=== PATIENT | female | born 1955 | race Caucasian/White ===

== ENCOUNTER → 2017-03-09 | Outpatient (CLI) | payer OTHER ==
[~2017-03-09] MED LIST: ESCI10TA17 PO; LISI-729 PO; SINGULAIR; SYMIN/8045 INH
[2017-03-09 09:42] LABS: BASO % 0.6 %; BASO ABS # 0.03 K/uL (0-0.2); COMPLETE YES; EOS % 1.5 %; HEMATOCRIT 42.3 % (37-47); IG% 0.4 %; LYMPH % 18.5 %; LYMPH ABS # 0.87 K/uL (1.2-3.4); MEAN CELL VOLUME 90.4 fL (80-100); MEAN CORPUSCULAR HEMOGLOBIN 30.6 pg (25-34); MEAN CORPUSCULAR HGB CONC 33.8 g/dl (32-36); MEAN PLATELET VOLUME 9.4 fL (7.4-10.4); MONO % 10.4 %; NEUT % 68.6 %; PLATELET COUNT 305 K/uL (130-400); RED BLOOD COUNT 4.68 M/uL (4.2-5.4); WHITE BLOOD COUNT 4.71 K/uL (4.8-10.8)
[2017-03-09 10:08] LABS: ALT/SGPT 28 U/L (12-78); BLOOD UREA NITROGEN 17 mg/dl (7-18); CALCIUM 9.3 mg/dl (8.5-10.1); CARBON DIOXIDE 27 mmol/L (21-32); CHLORIDE 102 mmol/L (98-107); CHOLESTEROL 276 mg/dl (0-200); CREATININE 0.89 mg/dl (0.60-1.20); GLUCOSE 88 mg/dl (70-99); POTASSIUM 4.4 mmol/L (3.5-5.1); SODIUM 136 mmol/L (136-145)
[2017-03-09 10:09] LABS: ESTIMATED AVERAGE GLUCOSE 114 mg/dl; HA1C FLAG Normal (Normal)
[2017-03-09 10:22] LABS: ALB/GLOB RATIO 1.2 (0.9-2); ALKALINE PHOSPHATASE 69 U/L (45-117); AST/SGOT 20 U/L (15-37); CHOLESTEROL/HDL RATIO 2.5; HDL CHOLESTEROL 109 mg/dl; LDL CHOLESTEROL CALCULATED 153 mg/dl; TRIGLYCERIDES 69 mg/dl (0-150); VERY LOW DENSITY LIPOPROT CALC 14 mg/dl
[2017-03-09 12:51] LABS: LYME DISEASE AB IGG NEG (NEG)
[2017-03-09 12:52] LABS: LYME DISEASE AB IGM NEG (NEG)
== END | disposition home or self-care (01) ==
LOC: C.LAB1850 08:21
PROVIDERS: ATTEND Nurse Practitioner Adult Health
DX: I10 Essential (primary) hypertension (principal); E78.5 Hyperlipidemia, unspecified; E55.9 Vitamin D deficiency, unspecified; M25.50 Pain in unspecified joint

== ENCOUNTER → 2017-06-28 | Outpatient (CLI) | payer OTHER ==
--- NOTE | 2017-06-29 07:53 | MAMMOGRAPHY REPORT ---
BILATERAL DIGITAL SCREENING MAMMOGRAM TOMOSYNTHESIS WITH CAD: 06/28/2017 CLINICAL HISTORY: Routine screening. Patient has no complaints. TECHNIQUE: Breast tomosynthesis in addition to standard 2D mammography was performed. Current study was also evaluated with a Computer Aided Detection (CAD) system. COMPARISON: Comparison is made to exams dated: 04/12/2016 mammogram, 04/08/2015 mammogram, 04/04/2014 m ammogram, 03/29/2013 mammogram, 03/28/2012 mammogram, and 11/22/2010 mammogram - [facility] er. BREAST COMPOSITION: The tissue of both breasts is almost entirely fatty. FINDINGS: There is evidence of bilateral reduction mammoplasty. A few benign rim calcifications. No suspicious mass, architectural distortion or cluster of suspicious microcalcifications is seen. IMPRESSION: ACR BI-RADS CATEGORY 1: NEGATIVE There is no mammographic evidence of malignancy. A 1 year screening mammogram is recommended. The pa tient will receive written notification of the results. Approximately 10% of breast cancers are not detected with mammography. A negative mammographic report should not delay biopsy if a clinically suggestive mass is present. Kandi Morris M.D. ay/:06/28/2017 16:18:52 Vascular Specialists: Eulalia MANCUSO(Leyla)(Brian), [facility] letter sent: Normal 1/2 BI-RADS Code: ACR BI-RADS Category 1: Negative
== END | disposition home or self-care (01) ==
LOC: C.MAMM 11:39
PROVIDERS: ATTEND Internal Medicine
DX: Z12.31 Encounter for screening mammogram for malignant neoplasm of breast (principal)

== ENCOUNTER → 2017-07-25 | Outpatient (CLI) | payer OTHER ==
--- NOTE | 2017-07-25 13:29 | DIAGNOSTIC IMAGING REPORT ---
CHEST 2 VIEWS ROUTINE CLINICAL HISTORY: 62 years-old Female presenting with COUGH. TECHNIQUE: PA and lateral views of the chest were obtained. COMPARISON: None. FINDINGS: Atherosclerosis of the aortic arch. Cardiac silhouette normal in size. Lungs and pleural spaces clear. Osseous structures normal. Upper abdomen normal. IMPRESSION: 1. No acute cardiopulmonary disease. Electronically signed by: Campbell Alfaro M.D. 07/25/2017 1:28 PM Dictated Date/Time: 07/25/2017 1:26 PM
== END | disposition home or self-care (01) ==
LOC: C.RADBC 12:36
PROVIDERS: ATTEND Nurse Practitioner Adult Health
DX: R05 Cough (principal)

== ENCOUNTER → 2017-10-07 | Outpatient (CLI) | payer OTHER ==
[2017-10-07 08:01] LABS: BASO % 1.1 %; BASO ABS # 0.05 K/uL (0-0.2); EOS % 2.6 %; EOS ABS # 0.12 K/uL (0-0.5); HEMATOCRIT 41.6 % (37-47); HEMOGLOBIN 14.3 g/dL (12.0-16.0); LYMPH % 23.2 %; LYMPH ABS # 1.09 K/uL (1.2-3.4); MEAN CELL VOLUME 87.8 fL (80-100); MEAN CORPUSCULAR HEMOGLOBIN 30.2 pg (25-34); MEAN CORPUSCULAR HGB CONC 34.4 g/dl (32-36); MEAN PLATELET VOLUME 9.3 fL (7.4-10.4); MONO % 10.4 %; MONO ABS # 0.49 K/uL (0.11-0.59); NEUT % 62.7 %; NEUT ABS # 2.95 K/uL (1.4-6.5); PLATELET COUNT 279 K/uL (130-400); RED CELL DISTRIBUTION WIDTH CV 12.9 % (11.5-14.5)
[2017-10-07 08:21] LABS: BLOOD UREA NITROGEN 13 mg/dl (7-18); CALCIUM 8.9 mg/dl (8.5-10.1); CARBON DIOXIDE 27 mmol/L (21-32); CHOLESTEROL 245 mg/dl (0-200); CREATININE 0.81 mg/dl (0.60-1.20); GLUCOSE 93 mg/dl (70-99); POTASSIUM 4.2 mmol/L (3.5-5.1); SODIUM 137 mmol/L (136-145)
[2017-10-07 08:25] LABS: LDL CHOLESTEROL CALCULATED 149 mg/dl
== END | disposition home or self-care (01) ==
LOC: C.LAB 07:14
PROVIDERS: ATTEND Family Medicine
DX: E78.5 Hyperlipidemia, unspecified (principal); I10 Essential (primary) hypertension

== ENCOUNTER → 2018-02-12 | Outpatient (CLI) | payer OTHER ==
[2018-02-12 17:28] LABS: ALBUMIN 3.6 gm/dl (3.4-5.0); ALKALINE PHOSPHATASE 101 U/L (45-117); ALT/SGPT 40 U/L (12-78); AST/SGOT 17 U/L (15-37); BLOOD UREA NITROGEN 13 mg/dl (7-18); CALCIUM 8.5 mg/dl (8.5-10.1); CARBON DIOXIDE 29 mmol/L (21-32); CREATININE 0.71 mg/dl (0.60-1.20); GLUCOSE 94 mg/dl (70-99); POTASSIUM 4.2 mmol/L (3.5-5.1); SODIUM 141 mmol/L (136-145); TOTAL PROTEIN 7.2 gm/dl (6.4-8.2)
== END | disposition home or self-care (01) ==
LOC: C.LAB1850 15:44
PROVIDERS: ATTEND Family Medicine
DX: D32.9 Benign neoplasm of meninges, unspecified (principal)

== ENCOUNTER → 2018-03-06 | Outpatient (CLI) | payer OTHER ==
[~2018-03-06] MED LIST changes: +GADAVIST IV PRN
--- NOTE | 2018-03-06 08:43 | DIAGNOSTIC IMAGING REPORT ---
MRI OF THE BRAIN COMBO CLINICAL HISTORY: Migraine headache. COMPARISON STUDY: MRI of the brain dated 06/04/2015 and 01/22/2008. TECHNIQUE: MRI of the brain was performed utilizing various T1 and T2-weighted sequences in the axial, sagittal, and coronal planes. Contrast-enhanced sequences were acquired following the administration of 7.5 cc of Gadavist. FINDINGS: Brain parenchyma: There is minimal patchy subcortical and periventricular microangiopathic disease. There is no hemorrhage or mass effect. There is no restricted diffusion to suggest acute ischemia. There is a 10 mm homogeneously enhancing extra-axial nodule along the right frontal convexity. This is unchanged in previous and is typical in appearance for a small meningioma. There is no associated mass effect. No additional enhancing mass lesion is identified on the postcontrast images. Varner-white matter differentiation is preserved. No extra-axial fluid collection is seen. The cerebellar tonsils are normal in configuration. Ventricles, sulci, and cisterns: Normal in configuration. Pituitary and sella: Unremarkable. Intracranial vasculature: Normal flow voids are maintained at the skull base. Orbits: The bony orbits are grossly intact. Orbital contents are normal in appearance. Sinuses and mastoids: Trace mucosal thickening is seen within the left maxillary antrum, the left frontal sinus, the ethmoid sinuses. The remaining paranasal sinuses are clear. The mastoid air cells are well pneumatized. Calvarium: Unremarkable. Cervical cord: Partially visualized cervical spinal cord is normal in morphology and signal intensity. IMPRESSION: 1. No acute intracranial abnormality. 2. A 10 mm extra-axial nodule along the right frontal convexity is unchanged dating back to 2007 and typical in appearance for a small meningioma. There is no associated mass effect. Electronically signed by: Danny Hawk M.D. 03/06/2018 8:42 AM Dictated Date/Time: 03/06/2018 8:37 AM
== END | disposition home or self-care (01) ==
LOC: C.MRIBC 07:47
PROVIDERS: ATTEND Family Medicine
DX: D32.9 Benign neoplasm of meninges, unspecified (principal)

== ENCOUNTER 2020-02-26 19:30 | Observation (INO) ==
--- NOTE | 2020-02-26 19:42 | Emergency Department Note ---
Impression & Plan Sacroiliitis, Back pain ED Provider Note NAME: NARDA CLARK AGE: 64 SEX: F : 1955 ARRIVES VIA: Walk-In INFORMANT: Patient, ED PROVIDER(S): Dean Light MD Chief Complaint: Back pain HPI: Patient is progressively worsening back pain with several days. The patient reportedly had a likely torn meniscus recently. The patient did have an injection to the knee. The patient denies any recent heavy lifting twisting or turning. Patient denies any trauma to the back. Patient describes the pain is constant and unrelenting. The patient's pain was initially an 11 out of 10 but currently about a 6 or 7 out of 10. The patient describes it as achy and sharp with radiation from the right lower back and buttock to the thigh. The patient does complain of some decrease sensation over the right lateral thigh. The patient denies any bowel or bladder incontinence, fevers, chills, chest pains, shortness of breath. The patient denies any dysuria hematuria or bowel issues. Patient denies any saddle anesthesia. Patient denies any prior history of cancer or unexplained weight loss. Patient does not use drugs. Patient does not use tobacco. Patient states that she recently was tested for Lyme's. The patient had been seen by sports medicine where the patient did start taking tramadol and methylprednisolone Dosepak. Patient states that this along with hydrocodone and NSAIDs has not improved her pain. ROS: See HPI for pertinent positives and negatives. A total of 10 systems were reviewed and otherwise negative. Past medical history: See below Surgical history: See below Social history: See below Physical Exam: GENERAL: Mildly uncomfortable in appearance, wearing glasses and a mask. NAD, non-toxic. EYE EXAM: Normal conjunctiva. PERRL, no anisocoria and EOM's grossly intact w/o pain. NECK: Supple, no nuchal rigidity, no adenopathy, non-tender. No signs of meningismus. LUNGS: Clear to auscultation. Normal chest wall mechanics. HEART: NSR, no MRG. ABDOMEN: Abdomen soft, non-tender, normo-active bowel sounds, no masses, no rebound or guarding. BACK: No CVA TTP. Mild pain to the right paraspinal and midline lumbar area. SKIN: No rashes and no bruising. UPPER EXTREMITIES: Upper extremities are grossly normal. LOWER EXTREMITIES: Grossly normal, no edema. Negative straight leg raise bilaterally. Positive Gabrielle test. NEURO EXAM: A&O x3, cranial nerves II-XII grossly intact, normal speech, moves all 4 extremities on command w/o issue. Slight decrease sensation over the r ight lateral thigh, no saddle anesthesia present. Differential diagnoses: Musculoskeletal, disc herniation, fracture, metastatic disease, cord compression, discitis, sciatica, cauda equina, infection, aortic disease, renal colic, gastrointestinal, as well as other pathologies. Course: Patient was seen and evaluated the bedside. Full history physical exam was performed. EKG: None Imaging Studies: Lumbar series Possible spondylolisthesis but no obvious fracture or dislocation. 1 view pelvis No obvious fractures or dislocation Cardiac monitoring: An order was placed for continuous cardiac monitoring. The monitor shows a rate of 85 with sinus rhythm. MDM: Patient was seen due to concern for back pain.Patient has a normal white count H&H and platelet count. The patient's kidney function shows a mild prerenal azotemia. X-ray does not show any obvious fracture but may have some sp ondylolisthesis seen on her x-ray. I did speak the on-call hospitalist Dr. Jackson as the patient could not tolerate ambulating secondary to pain. Patient was admitted to the medicine service. Past Med/Surg History Medical History Asthma Benign meningioma of brain Controlled substance agreement signed (Inactive) History of SCC (squamous cell carcinoma) of skin (Inactive) Hypertension Migraine Obesity Osteoarthritis Sleep apnea CPAP Stress incontinence Vitamin D deficiency (Inactive) Surgical History H/O bilateral breast reduction surgery History of arthroscopy RT KNEE History of bilateral tubal ligation History of breast biopsy History of colonoscopy History of hysterectomy History of tonsillectomy History of tooth extraction S/P blepharoplasty (04/2018) Social History Smoking Status: Never smoker Second Hand Exposure: No; Hx Alcohol Use: Yes Alcohol type: beer, wine and hard liquor Hx Substance Use: No Preferred Language: Georgian Communication Ability: Effective Visual Impairment: No Limitations Broach Operator Required: No Beliefs That Will Affect Care: None Current Living Situation: Spouse Feels Safe at Home: Yes Allergies Allergies Allergy/AdvReac Type Severity Reaction Status Date / Time oxycodone [From Percocet] Allergy Mild itchiness Verified 05/28/19 08:10 Home Meds Home Medications Medication Instructions Recorded Confirmed budesonide-formoterol [Symbicort] 2 puffs INH DAILY 02/26/20 02/26/20 [id number] See Rx Instructions PO Q6H PRN MDD 02/26/20 02/26/20 [Fiorinal] 6 Capsules/24 hours escitalopram oxalate 20 mg PO HS 02/26/20 02/26/20 lisinopril 20 mg PO QAM 02/26/20 02/26/20 methylprednisolone See Rx Instructions .ROUTE .COMPLEX 02/26/20 02/26/20 montelukast [Singulair] 10 mg PO HS 02/26/20 02/26/20 tramadol 50 mg PO Q6H PRN 02/26/20 02/26/20 Previous Rx's Medication Instructions Recorded solifenacin 10 mg tablet 10 mg PO QAM #90 tab 04/29/19 albuterol sulfate 90 mcg/actuation 2 puff INHALATION QID PRN #18 gm 05/21/19 aerosol inhaler Results & Data (ED) Vital Signs Vital Signs - 24 hr 02/26/20 19:36 02/26/20 20:18 02/26/20 20:30 Temperature 37.0 C Temperature Source Oral Pulse Rate 85 Pulse Rate [Finger] 70 74 Pulse Rhythm [Finger] Regular Regular Pulse Strength [Finger] Normal Normal Respiratory Rate 16 18 18 Respiratory Effort / Characteristics Non-Labored Spontaneous Non-Labored Spontaneous Non-Labored Spontaneous Respiratory Depth Normal Normal Normal Respiratory Pattern Regular Regular Regular Blood Pressure 90/65 L Blood Pressure [Right Arm] 171/102 H 149/102 H Blood Pressure Mean 73 Blood Pressure Mean [Right Arm] 125 117 Blood Pressure Position Sitting Blood Pressure Position [Right Arm] Lying Lying Pulse Oximetry 97 98 93 Oxygen Delivery Method Room Air Room Air Room Air Sepsis Recent Fever Within 48 Hours No Sepsis New/Unexplained Change in Mental Status No Sepsis Action Taken by Nursing No Action Required 02/26/20 22:00 02/26/20 23:00 Temperature Temperature Source Pulse Rate Pulse Rate [Finger] 75 67 Pulse Rhythm [Finger] Regular Regular Pulse Strength [Finger] Normal Normal Respiratory Rate 18 18 Respiratory Effort / Characteristics Non-Labored Spontaneous Non-Labored Spontaneous Respiratory Depth Normal Normal Respiratory Pattern Regular Regular Blood Pressure Blood Pressure [Right Arm] 142/90 H 140/88 Blood Pressure Mean Blood Pressure Mean [Right Arm] 107 105 Blood Pressure Position Blood Pressure Position [Right Arm] Lying Lying Pulse Oximetry 94 94 Oxygen Delivery Method Room Air Room Air Sepsis Recent Fever Within 48 Hours Sepsis New/Unexplained Change in Mental Status Sepsis Action Taken by Residential Medications Current Medication List: was personally reviewed by me Laboratory Data Attestation: I reviewed the patient's lab results. Result diagrams: 02/26/20 21:13 02/26/20 21:13 Lab Results 02/26/20 02/26/20 Range/Units 21:13 21:13 WBC 10.64 (4.8-10.8) K/uL RBC 4.36 (4.2-5.4) M/uL Hgb 13.2 (12.0-16.0) g/dL Hct 39.4 (37-47) % MCV 90.4 (80-100) fL MCH 30.3 (25-34) pg MCHC 33.5 (32-36) g/dL RDW Std Deviation 46.9 H (36.4-46.3) fL RDW Coeff of Juanito 14.1 (11.5-14.5) % Plt Count 300 (130-400) K/uL MPV 9.6 (7.4-10.4) fL Immature Gran % (Auto) 1.1 % Neut % (Auto) 68.8 % Lymph % (Auto) 18.0 % [place] % (Auto) 11.2 % Eos % (Auto) 0.7 % Baso % (Auto) 0.2 % Neut # (Auto) 7.33 H (1.4-6.5) K/uL Lymph # (Auto) 1.91 (1.2-3.4) K/uL [place] # (Auto) 1.19 H (0.11-0.59) K/uL Eos # (Auto) 0.07 (0-0.5) K/uL Baso # (Auto) 0.02 (0-0.2) K/uL Immature Gran # (Auto) 0.12 H (0.00-0.02) K/uL Sodium 136 (136-145) mmol/L Potassium 4.4 (3.5-5.1) mmol/L Chloride 106 (98-107) mmol/L Carbon Dioxide 25 (21-32) mmol/L Anion Gap 5.0 (3-11) BUN 24 H (7-18) mg/dl Creatinine 0.92 (0.6-1.2) mg/dl Est Cr Clr Drug Dosing 73.3 ml/min Est GFR ( Amer) 76.8 Est GFR (Non-Af Amer) 66.3 BUN/Creatinine Ratio 26.5 H (10-20) Glucose 112 H (70-99) mg/dl Calcium 8.5 (8.5-10.1) mg/dl Administered Medications Discontinued Medications Cyclobenzaprine HCl (Flexeril) 10 mg PO NOW STA Stop: 02/26/20 22:37 Last Admin: 02/26/20 22:49 Dose: 10 mg Documented by: [id number] Fentanyl Citrate (Fentanyl Citrate) 75 mcg IV NOW STA Stop: 02/26/20 21:32 Last Admin: 02/26/20 21:35 Dose: 75 mcg Documented by: [id number] Sodium Chloride (Nss 1000ml) 1,000 mls @ 999 mls/hr IV .Q1H1M JONAH Stop: 02/26/20 21:00 Last Infusion: 02/26/20 21:13 Dose: 0 mls/hr Documented by: [id number] Admin: 02/26/20 20:12 Dose: 999 mls/hr Documented by: [id number] Ketorolac Tromethamine (Toradol) 30 mg IV ONE STA Stop: 02/26/20 19:56 Last Admin: 02/26/20 20:11 Dose: 30 mg Documented by: [id number] Lidocaine (Lidoderm 5%) 1 patch TD NOW STA Stop: 02/26/20 19:56 Last Admin: 02/26/20 20:12 Dose: 1 patch Documented by: [id number] Methylprednisolone (Solumedrol) 60 mg IV NOW STA Stop: 02/26/20 19:56 Last Admin: 02/26/20 20:11 Dose: 60 mg Documented by: [id number] Morphine Sulfate (Morphine Sulfate) 4 mg IV NOW STA Stop: 02/26/20 19:56 Last Admin: 02/26/20 20:12 Dose: 4 mg Documented by: [id number] Ondansetron HCl (Zofran) 4 mg IV NOW STA Stop: 02/26/20 19:56 Last Admin: 02/26/20 20:11 Dose: 4 mg Documented by: [id number] Discharge Plan Visit Data Chief Complaint: Back Injury/Pain Stated Complaint: BACK PAIN,LEG NUMBNESS,HIP PAIN ED Provider: Dean Light Discharge Problem: Sacroiliitis, Back pain Forms Stand Alone Forms: [facility] Prescriptions Prescriptions: No Action solifenacin [Vesicare] 10 mg tablet 10 mg PO QAM Qty: 90 RF: 3 albuterol sulfate [Ventolin HFA] 90 mcg/actuation HFA aerosol inhaler 2 puff INHALATION QID PRN (Reason: Shortness Of Breath) Qty: 18 RF: 3 tramadol 50 mg tablet 50 mg PO Q6H PRN (Reason: Pain) RF: 0 methylprednisolone 4 mg tablets,dose pack See Rx Instructions .ROUTE .COMPLEX RF: 0 lisinopril 20 mg tablet 20 mg PO QAM RF: 0 [id number] [Fiorinal] 50-325-40 mg capsule See Rx Instructions PO Q6H MDD 6 Capsules/24 hours PRN (Reason: Migraine Headache) RF: 0 montelukast [Singulair] 10 mg tablet 10 mg PO HS RF: 0 escitalopram oxalate 20 mg tablet 20 mg PO HS RF: 0 budesonide-formoterol [Symbicort] 160-4.5 mcg/actuation HFA aerosol inhaler 2 puffs INH DAILY RF: 0 Referrals Referrals: Lola Olivares MD [Primary Care Provider] - Discharge Problem: Back pain Qualifiers: Back pain location: low back pain Chronicity: acute Back pain laterality: right Sciatica presence: without sciatica Qualified Code(s): M54.5 - Low back pain
[2020-02-26] MEDS ORDERED: KETOROLAC TROMETHAMINE 15 MG/ML VIAL IV STA (19:55)
[2020-02-26] MEDS ORDERED: LIDOCAINE 5% 1 PATCH TD STA (19:55)
[2020-02-26] MEDS ORDERED: methylPREDNISolone 125 MG/2 ML VIAL IV STA (19:55)
[2020-02-26] MEDS ORDERED: ONDANSETRON INJ 2 MG/ML 2 ML VIAL IV STA (19:55)
[2020-02-26] MEDS ORDERED: MoRPHine SULFATE 4 MG/ML 1 ML CARP\\VIAL IV STA (19:55)
[2020-02-26] MEDS ORDERED: SODIUM CHLORIDE 0.9% 1000ML 1,000 ML IV SCH (20:00)
[2020-02-26 21:23] LABS: Basophils # (auto) 0.02 K/uL (0-0.2); Basophils % (auto) 0.2 %; Eosinophils # (auto) 0.07 K/uL (0-0.5); Eosinophils % (auto) 0.7 %; Hematocrit (blood only) 39.4 % (37-47); Hemoglobin 13.2 g/dL (12.0-16.0); Immature Granulocytes # (auto) 0.12 K/uL (0.00-0.02); Immature Granulocytes % (auto) 1.1 %; Lymphocytes # (auto) 1.91 K/uL (1.2-3.4); Mean Corpuscular Hemoglobin 30.3 pg (25-34); Mean Corpuscular Hgb Conc 33.5 g/dL (32-36); Mean Corpuscular Volume 90.4 fL (80-100); Mean Platelet Volume 9.6 fL (7.4-10.4); Monocytes # (auto) 1.19 K/uL (0.11-0.59); Monocytes % (auto) 11.2 %; Neutrophils # (auto) 7.33 K/uL (1.4-6.5); Neutrophils % (auto) 68.8 %; Platelet Count 300 K/uL (130-400); RDW Coefficient of Variation 14.1 % (11.5-14.5); RDW Standard Deviation 46.9 fL (36.4-46.3); Red Blood Count 4.36 M/uL (4.2-5.4); White Blood Count 10.64 K/uL (4.8-10.8)
[2020-02-26] MEDS ORDERED: fentaNYL citrate 100 MCG/2 ML VIAL IV STA (21:31)
[2020-02-26 22:03] LABS: BUN Creatinine Ratio 26.5 (10-20); Calcium 8.5 mg/dl (8.5-10.1); Creatinine Clr Calc Pharmacy 73.3 ml/min; Est GFR (African American) 76.8; Est GFR (Non-African American) 66.3; Potassium 4.4 mmol/L (3.5-5.1)
[2020-02-26] MEDS ORDERED: CYCLOBENZAPRINE HCL 10 MG TAB PO STA (22:36)
--- NOTE | 2020-02-26 23:56 | History & Physical Report ---
Date of Service February 26, 2020 Assessment & Plan (1) Sacroiliitis: Sacroiliitis/intractable low back pain- Likely triggered by imbalance of pelvic pressures secondary to recent knee injury. Place on Decadron 10 mg IV now then 6 mg IV every 6 hours. Give Dilaudid 0.5 mg IV now, and then 0.2 mg IV every 3 hours as needed severe pain. Tramadol 50 mg p.o. every 6 hours PRN moderate pain Acetaminophen 650 mg p.o. every 6 hours PRN mild pain or temperature Consult pain management service Drs. Ovalle/Brian Per recommendation of case management, patient will be placed in observation status. Present on Admission?: Yes (2) Intractable low back pain: See above Present on Admission?: Yes (3) HTN, goal below 140/90: Continue lisinopril 20 mg every morning Present on Admission?: Yes (4) Asthma: Continue Symbicort 2 puffs inhaled daily Present on Admission?: Yes (5) Urge incontinence: Continue solifenacin 10 mg daily in the morning Present on Admission?: Yes (6) Classic migraine with aura: Continue Fiorinal every 6 hours as needed Present on Admission?: Yes History of Present Illness Chief Complaint: The patient presents to the emergency department with progressively worsening and intractable low back pain. 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 A few weeks ago, the patient reports having injured her knee, for which she has been undergoing injections from orthopedic surgery. She more recently developed severe and worsening low back pain, with radiation around her right hip toward her right groin and down periodically to her right ankle. She had also been placed on tramadol and Medrol Dosepak, and more recently with hydrocodone and N SAIDs without sufficient reduction in pain. Allergies Allergy/AdvReac Type Severity Reaction Status Date / Time oxycodone [From Percocet] Allergy Mild itchiness Verified 05/28/19 08:10 Home Medications Home Medications Medication Instructions Recorded Confirmed Type solifenacin 10 mg tablet 10 mg PO QAM #90 tab 04/29/19 02/26/20 Rx albuterol sulfate 90 mcg/actuation 2 puff INHALATION QID PRN #18 gm 05/21/19 02/26/20 Rx aerosol inhaler budesonide-formoterol [Symbicort] 2 puffs INH DAILY 02/26/20 02/26/20 History [id number] See Rx Instructions PO Q6H PRN MDD 02/26/20 02/26/20 History [Fiorinal] 6 Capsules/24 hours escitalopram oxalate 20 mg PO HS 02/26/20 02/26/20 History lisinopril 20 mg PO QAM 02/26/20 02/26/20 History methylprednisolone See Rx Instructions .ROUTE .COMPLEX 02/26/20 02/26/20 History montelukast [Singulair] 10 mg PO HS 02/26/20 02/26/20 History tramadol 50 mg PO Q6H PRN 02/26/20 02/26/20 History Past Med/Surg History Medical History Asthma Benign meningioma of brain Controlled substance agreement signed (Inactive) History of SCC (squamous cell carcinoma) of skin (Inactive) Hypertension Migraine Obesity Osteoarthritis Sleep apnea CPAP Stress incontinence Vitamin D deficiency (Inactive) Surgical History H/O bilateral breast reduction surgery History of arthroscopy RT KNEE History of bilateral tubal ligation History of breast biopsy History of colonoscopy History of hysterectomy History of tonsillectomy History of tooth extraction S/P blepharoplasty (04/2018) Social History Smoking Status: Never smoker Second Hand Exposure: No; Hx Alcohol Use: Yes Alcohol type: wine and hard liquor Hx Substance Use: No Preferred Language: Australian Communication Ability: Effective Visual Impairment: No Limitations Thermocouple Tester Required: No Beliefs That Will Affect Care: None Current Living Situation: Spouse Other Information That Helps Us Care for You: No Feels Safe at Home: Yes Safety Concerns: Feels Safe At This Time Review of Systems Review of Systems: The patient denies chest pain, palpitations, shortness of breath, dyspnea on exertion, cough, lower extremity swelling, sore throat, fevers, chills, sweats, nausea, vomiting, diarrhea , constipation, abdominal pain, pelvic pain, blood in urine or stool, dysuria, urinary frequency or urgency, lightheadedness, dizziness, headache, memory loss, loss of consciousness, rash, abnormal bruising or bleeding, focal or generalized weakness, numbness or tingling in arms, generalized arthralgias or myalgias, neck pain, or night sweats. The review of systems is otherwise negative other than for that already noted above, and at least 10 systems have been reviewed. Physical Exam Physical Exam: The patient is awake, alert and oriented 3, well developed and well nourished, normocephalic and atraumatic, lying in bed and in moderately severe stress due to pain. HEENT--PERRL, EOMI, mucous membranes and oropharynx normal. Neck--supple. No JVD. No bruits. Thyroid normal, trachea midline, no adenopathy. Heart--normal S1 and S2. No murmurs, rubs or gallops. Lungs--clear bilaterally, no respiratory distress, no accessory muscle use. Abdomen--normal bowel sounds and soft. Nontender. Nondistended. Extremities--no cyanosis or clubbing. No edema. Dermatologic--normal skin turgor, normal color, no abnormal lymph nodes, no rash. Neurologic--cranial nerves II through XII grossly intact. Rheumatologic--exam limited due to severe pain Psychiatric--normal affect. Results & Data Results & Data ([facility]) Vital Signs (Past 12 Hours) Vital Signs Temp Pulse Pulse Resp BP BP Pulse Ox 02/26/20 23:00 67 18 140/88 94 02/26/20 22:00 75 18 142/90 H 94 02/26/20 20:30 74 18 149/102 H 93 02/26/20 20:18 70 18 171/102 H 98 02/26/20 19:36 98.6 F 85 16 90/65 L 97 Laboratory Results Laboratory Results WBC 10.64 K/uL (4.8-10.8) 02/26/20 21:13 RBC 4.36 M/uL (4.2-5.4) 02/26/20 21:13 Hgb 13.2 g/dL (12.0-16.0) 02/26/20 21:13 Hct 39.4 % (37-47) 02/26/20 21:13 MCV 90.4 fL (80-100) 02/26/20 21:13 MCH 30.3 pg (25-34) 02/26/20 21:13 MCHC 33.5 g/dL (32-36) 02/26/20 21:13 RDW Std Deviation 46.9 fL (36.4-46.3) H 02/26/20 21:13 RDW Coeff of Juanito 14.1 % (11.5-14.5) 02/26/20 21:13 Plt Count 300 K/uL (130-400) 02/26/20 21:13 MPV 9.6 fL (7.4-10.4) 02/26/20 21:13 Immature Gran % (Auto) 1.1 % 02/26/20 21:13 Neut % (Auto) 68.8 % 02/26/20 21:13 Lymph % (Auto) 18.0 % 02/26/20 21:13 Carbon % (Auto) 11.2 % 02/26/20 21:13 Eos % (Auto) 0.7 % 02/26/20 21:13 Baso % (Auto) 0.2 % 02/26/20 21:13 Neut # (Auto) 7.33 K/uL (1.4-6.5) H 02/26/20 21:13 Lymph # (Auto) 1.91 K/uL (1.2-3.4) 02/26/20 21:13 Carbon # (Auto) 1.19 K/uL (0.11-0.59) H 02/26/20 21:13 Eos # (Auto) 0.07 K/uL (0-0.5) 02/26/20 21:13 Baso # (Auto) 0.02 K/uL (0-0.2) 02/26/20 21:13 Immature Gran # (Auto) 0.12 K/uL (0.00-0.02) H 02/26/20 21:13 Sodium 136 mmol/L (136-145) 02/26/20 21:13 Potassium 4.4 mmol/L (3.5-5.1) 02/26/20 21:13 Chloride 106 mmol/L (98-107) 02/26/20 21:13 Carbon Dioxide 25 mmol/L (21-32) 02/26/20 21:13 Anion Gap 5.0 (3-11) 02/26/20 21:13 BUN 24 mg/dl (7-18) H 02/26/20 21:13 Creatinine 0.92 mg/dl (0.6-1.2) 02/26/20 21:13 Est Cr Clr Drug Dosing 73.3 ml/min 02/26/20 21:13 Est GFR ( Amer) 76.8 02/26/20 21:13 Est GFR (Non-Af Amer) 66.3 02/26/20 21:13 BUN/Creatinine Ratio 26.5 (10-20) H 02/26/20 21:13 Glucose 112 mg/dl (70-99) H 02/26/20 21:13 Calcium 8.5 mg/dl (8.5-10.1) 02/26/20 21:13 Urine Color Yellow 02/27/20 01:37 Urine Appearance Clear (Clear) 02/27/20 01:37 Urine pH 5.5 (4.5-7.5) 02/27/20 01:37 Ur Specific [place] 1.011 (1.000-1.030) 02/27/20 01:37 Urine Protein Negative (Negative) 02/27/20 01:37 Urine Glucose (UA) Negative (Negative) 02/27/20 01:37 Urine Ketones Negative (Negative) 02/27/20 01:37 Urine Blood Negative (Negative) 02/27/20 01:37 Urine Nitrite Negative (Negative) 02/27/20 01:37 Urine Bilirubin Negative (Negative) 02/27/20 01:37 Urine Urobilinogen Negative (Negative) 02/27/20 01:37 Ur Leukocyte Esterase Negative (Negative) 02/27/20 01:37 Code Status & VTE Plan Code Status Full code VTE Prophylaxis Plan VTE Prophylaxis will be ordered: Yes PG Care Time/CCT Total # of Minutes Spent Total Time Spent with Patient: Total time spent is greater than 50% in coordination of care (as documented) at patient's floor/unit and/or counseling patient: Coding Level of Care Code 95217 OBS Care - Level 3 Diagnoses Sacroiliitis M46.1 Intractable low back pain M54.5 HTN, goal below 140/90 I10 Asthma J45.909 Urge incontinence N39.41 Classic migraine with aura G43.109
[2020-02-26] MEDS ORDERED: TRAMADOL HCL 50 MG TABLET ONE (23:59)
[2020-02-27] MEDS ORDERED: GABAPENTIN 600 MG TAB PO STA (00:08)
[2020-02-27] MEDS ORDERED: HYDROmorphone INJ 0.5 MG/0.5 ML SYR IV STA (00:08)
[2020-02-27] MEDS ORDERED: DEXAMETHASONE SOD INJ 10 MG/ML VIAL IV ONE (00:08)
[2020-02-27] MEDS ORDERED: DEXAMETHASONE SOD INJ 10 MG/ML VIAL IV STA (00:16)
[2020-02-27] MEDS ORDERED: HYDROmorphone INJ 0.5 MG/0.5 ML SYR ONE (00:17)
[2020-02-27] MEDS ORDERED: GABAPENTIN 100 MG CAP PO SCH (00:30)
[2020-02-27] MEDS ORDERED: ONDANSETRON INJ 2 MG/ML 2 ML VIAL IV PRN ×2 (00:40→09:40)
[2020-02-27] MEDS ORDERED: BUTALBITAL/ASPIRIN/CAFFEINE 1 TAB TAB PO PRN (00:40)
[2020-02-27] MEDS ORDERED: ALUMINUM/MAGNESIUM SUSP 30 ML UDC PO PRN (00:40)
[2020-02-27 01:54] LABS: Appearance Urine Clear (Clear); Bilirubin Urine Negative (Negative); Blood Urine Negative (Negative); Color Urine Yellow; Glucose Urine UA Negative (Negative); Ketones Urine Negative (Negative); Leukocyte Esterase Urine Negative (Negative); Nitrite Urine Negative (Negative); Protein Urine Negative (Negative); Specific Gravity Urine 1.011 (1.000-1.030); Urobilinogen Urine Negative (Negative); pH Urine 5.5 (4.5-7.5)
[2020-02-27] MEDS: HYDROmorphone INJ 1 MG/ML SYRINGE IV PRN ×2 (04:06→08:28)
[2020-02-27] MEDS ORDERED: dexAMETHasone 6 MG in DEXTROSE 5% 25 ML IV SCH (06:00)
[2020-02-27] MEDS ORDERED: DEXAMETHASONE SOD PHOSPHATE 6 MG in SYRINGE 0 ML IV SCH (06:00)
--- NOTE | 2020-02-27 07:23 | XRay Report ---
XR pelvis 1-2V routine HISTORY: 64 years-old Female R SI pain acute pain of the right SI joint COMPARISON: Lumbar spine radiographs of same day TECHNIQUE: AP view of the pelvis FINDINGS: Moderate degeneration of the bilateral SI joints. Mild osteoarthritis of the femoral acetabular joint s. No acute fracture, dislocation, avascular necrosis or opaque foreign body. IMPRESSION: No acute fracture. ACT 112: Negative or not required by law. The above report was generated using voice recognition software. It may contain grammatical, syntax o r spelling errors. Electronically signed by: Mac Wright M.D. 02/27/2020 7:22 AM
--- NOTE | 2020-02-27 07:38 | XRay Report ---
XR lumbar spine 2-3V HISTORY: 64 years-old Female LBP/buttock pain R side acute low back pain without reported trauma COMPARISON: Pelvis radiograph of same day TECHNIQUE: 3 views of the lumbar spine FINDINGS: 5 nonrib-bearing lumbar type vertebral segments are present. 5 mm anterolisthesis L4 on L5. Severe fa cet arthrosis of the lower lumbar spine. Mild multilevel intervertebral disc space narrowing. No acut e fracture. Soft tissues are unremarkable. Moderate fecal retention. IMPRESSION: 1. No acute fracture. 2. Grade 1 anterolisthesis L4 on L5 is likely secondary to long-standing facet arthrosis. ACT 112: Negative or not required by law. The above report was generated using voice recognition software. It may contain grammatical, syntax o r spelling errors. Electronically signed by: Mac Wright M.D. 02/27/2020 7:36 AM
[2020-02-27] MEDS: VESICARE~ORDER AWAITING ACTION SCH ×2 (08:28→17:39)
--- NOTE | 2020-02-27 08:53 | Pain Management Consultation ---
Date of Consultation February 27, 2020 Assessment & Plan (1) Sacroiliitis: Present on Admission?: Yes (2) Radicular pain of right lower extremity: * Recommend continue with IV dexamethasone * Will plan for a right SI joint injection later today in the OR setting- currently planned for [address] Ovalle--patient will remain n.p.o. Side effects versus benefits of right SI joint injection were discussed. We discussed the importance of diagnostic outcome for 4-6 hours after the procedure and the patient verbalized understanding. This was also discussed with hospitalist team. * Will initiate a trial of baclofen 10 mg twice daily-3 times daily * Patient may continue with IV hydromorphone for PRN breakthrough pain versus tramadol * Should the patient fail to respond to above would recommend further imaging of the lumbar spine with noncontrast MRI Present on Admission?: Yes History of Present Illness Reason for Consultation: Intractable low back and right lower extremity pain Requesting Physician: Doug Faulkner MD Attending Physician: Doug Faulkner MD History of Present Illness Mrs. Bettencourt is a 64-year-old white female who was admitted due to intractable right-sided low back pain which travels to the lateral hip and groin and occasionally the lower extremity to the foot in a predominant L5 distribution. Patient reported onset of recurrent pain approximately 1 week ago without any known injury. She has been dealing with bilateral knee pain due to a knee injury chronically with recent increase in left-sided knee pain which led to an intra-articular steroid injection. She feels that due to her gait abnormality this has contributed to axial low back pain. She describes the pain as aching, burning and sharp in characteristic and fairly consistent aggravated with positional change, walking and climbing of stairs. Patient is rating her pain at a 6/10 at its best and a 10/10 at its worst. She describes an intense cramping sensation in the right gluteal, lateral hip and groin region. The patient was treated with Medrol Dosepak, hydrocodone and NSAIDs in the outpatient setting with minimal improvement in pain. Due to the severity of her pain she presented to the emergency room last evening and was admitted for further evaluation and treatment. Patient denies pain in the left lower extremity. She denies bowel or bladder incontinence or saddle anesthesias. She reports minimal residual knee pain at this time although continues to have gait abnormality. She has significant pain with any ambulation in the right lumbosacral and hip region. She reports some numbness and tingling sensation in the right anterior pretibial region which can travel to the foot involving most toes. She was initiated on IV Decadron last evening and was provided Flexeril with minimal relief. Plan of care discussed with Dr. Prater. Pain Assessment Full Body Front + Back: 1. Right lumbosacral/gluteal region 2. Pain into the right groin 3. Pain and paresthesias to the pretibial region Pain scale - at its best (0-10): 6 Pain scale - at its worst (0-10): 10 Allergies Allergy/AdvReac Type Severity Reaction Status Date / Time oxycodone [From Percocet] Allergy Mild itchiness Verified 05/28/19 08:10 Home Medications Home Medications Medication Instructions Recorded Confirmed Type solifenacin 10 mg tablet 10 mg PO QAM #90 tab 04/29/19 02/26/20 Rx albuterol sulfate 90 mcg/actuation 2 puff INHALATION QID PRN #18 gm 05/21/19 02/26/20 Rx aerosol inhaler budesonide-formoterol [Symbicort] 2 puffs INH DAILY 02/26/20 02/26/20 History [id number]-dzmlfawn See Rx Instructions PO Q6H PRN MDD 02/26/20 02/26/20 History [Fiorinal] 6 Capsules/24 hours escitalopram oxalate 20 mg PO HS 02/26/20 02/26/20 History lisinopril 20 mg PO QAM 02/26/20 02/26/20 History methylprednisolone See Rx Instructions .ROUTE .COMPLEX 02/26/20 02/26/20 History montelukast [Singulair] 10 mg PO HS 02/26/20 02/26/20 History tramadol 50 mg PO Q6H PRN 02/26/20 02/26/20 History Pain History Pain Intensity Pain scale - at its best (0-10): 6 Pain scale - at its worst (0-10): 10 Patient History Medical History Asthma Benign meningioma of brain Controlled substance agreement signed (Inactive) History of SCC (squamous cell carcinoma) of skin (Inactive) Hypertension Migraine Obesity Osteoarthritis Sleep apnea CPAP Stress incontinence Vitamin D deficiency (Inactive) Surgical History H/O bilateral breast reduction surgery History of arthroscopy RT KNEE History of bilateral tubal ligation History of breast biopsy History of colonoscopy History of hysterectomy History of tonsillectomy History of tooth extraction S/P blepharoplasty (04/2018) Social History Smoking Status: Never smoker Second Hand Exposure: No; Hx Alcohol Use: Yes Alcohol type: wine and hard liquor Hx Substance Use: No Preferred Language: Bermudian Communication Ability: Effective Visual Impairment: No Limitations Radiation Technician Required: No Beliefs That Will Affect Care: None Current Living Situation: Spouse Other Information That Helps Us Care for You: No Feels Safe at Home: Yes Safety Concerns: Feels Safe At This Time Physical Exam Physical Exam: General: Patient sitting quietly in exam room in no acute distress. Speech and thought process appropriate. Mood and affect appropriate. Cognition intact. Head: Normocephalic and atraumatic. ENT: No evidence of nasal or oral mucosal lesions. Mucous membranes are moist. Eyes: Pupils equal round reactive to light. Abdomen: Soft and nondistended. No organomegaly. Bowel sounds active. Back/spine: Loss of lordosis. Nontender over the midline. No focal facet joint tenderness provocative testing. Patient exquisitely tender over the right SI joint to provocative testing and nontender corresponding on the left. Patient tender throughout the entire right gluteal region. Minimal spasm appreciated. No definable myoneural trigger points. Lower extremities: Patient tender over the right greater trochanter direct outpatient. Right hip is nontender with internal/external rotation. SLR is negative bilaterally. Strength testing 5/5 and equal with some guarding on the right with dorsiflexion and EHL testing. Patient has some diminished sensation over the right pretibial region when compared to the left to sharp and dull. Neurologic: Cranial nerves grossly intact. Ambulatory function not witnessed. Results Diagnostic Review Radiology: images reviewed Radiology Findings: [facility], [place] [phone] XRay Report Patient: NARDA BETTENCOURT Date: 02/26/20 MR#: [id number]: [address] [facility] Acct ID:[id number]: Date: [address] [place] [address] Zip: [place] [address] Age: 64Location: 3W Sex: F Room/Bed: [facility] Att Phy: Doug Faulkner, MDDiagnosis: INTRACTABLE LOW BACK PAIN Terri Phy: Lola Olivares, MDService Date: 02/26/20 Fam Phy:Interpreting Phy: Ba Wright Admit Phy: Nomi San M.D. Ordering Phy: Dean Light MD cc: ~ XR lumbar spine 2-3V HISTORY: 64 years-old Female LBP/buttock pain R side acute low back pain without reported trauma COMPARISON: Pelvis radiograph of same day TECHNIQUE: 3 views of the lumbar spine FINDINGS: 5 nonrib-bearing lumbar type vertebral segments are present. 5 mm anterolisthesis L4 on L5. Severe facet arthrosis of the lower lumbar spine. Mild multilevel intervertebral disc space narrowing. No acute fracture. Soft tissues are unremarkable. Moderate fecal retention. IMPRESSION: 1. No acute fracture. 2. Grade 1 anterolisthesis L4 on L5 is likely secondary to long-standing facet arthrosis. ACT 112: Negative or not required by law. The above report was generated using voice recognition software. It may contain grammatical, syntax or spelling errors. Electronically signed by: Mac Wright M.D. 02/27/2020 7:36 AM Dictated: 02/27/20 0735 Transcribed: 02/27/20 0735 [place], [place] [phone] XRay Report Patient: NARDA BETTENCOURT Date: 02/26/20 MR#: [id number]: [address] [facility] Acct ID:[id number]: Date: [address] [place] [address] Zip: [place] [address] Age: 64Location: 3W Sex: F Room/Bed: [facility] Att Phy: Doug Faulkner, MDDiagnosis: INTRACTABLE LOW BACK PAIN Terri Phy: Lola Olivares, MDService Date: 08/05/20 Fam Phy:Interpreting Phy: Ba Wright Admit Phy: Nomi San M.D. Ordering Phy: Dean Light MD cc: ~ XR pelvis 1-2V routine HISTORY: 64 years-old Female R SI pain acute pain of the right SI joint COMPARISON: Lumbar spine radiographs of same day TECHNIQUE: AP view of the pelvis FINDINGS: Moderate degeneration of the bilateral SI joints. Mild osteoarthritis of the femoral acetabular joints. No acute fracture, dislocation, avascular necrosis or opaque foreign body. IMPRESSION: No acute fracture. ACT 112: Negative or not required by law. The above report was generated using voice recognition software. It may contain grammatical, syntax or spelling errors. Electronically signed by: Mac Wright M.D. 02/27/2020 7:22 AM Dictated: 02/27/20 0721 Transcribed: 02/27/20 0721
--- NOTE | 2020-02-27 09:04 | History & Physical Report ---
Date of Service February 27, 2020 Assessment & Plan (1) Sacroiliitis: (2) Radicular pain of right lower extremity: * Recommend continue with IV dexamethasone * Will plan for a right SI joint injection later today in the OR setting- currently planned for [address] Ovalle--patient will remain n.p.o. Side effects versus benefits of right SI joint injection were discussed. We discussed the importance of diagnostic outcome for 4-6 hours after the procedure and the patient verbalized understanding. This was also discussed with hospitalist team. * Will initiate a trial of baclofen 10 mg twice daily-3 times daily * Patient may continue with IV hydromorphone for PRN breakthrough pain versus t ramadol * Should the patient fail to respond to above would recommend further imaging of the lumbar spine with noncontrast MRI Admission and Anticipated Discharge Date Admission Date: February 26, 2020 History of Present Illness Primary Care Provider: Lola Olivares MD Allergies Allergy/AdvReac Type Severity Reaction Status Date / Time oxycodone [From Percocet] Allergy Mild itchiness Verified 05/28/19 08:10 Home Medications Home Medications Medication Instructions Recorded Confirmed Type solifenacin 10 mg tablet 10 mg PO QAM #90 tab 04/29/19 02/26/20 Rx albuterol sulfate 90 mcg/actuation 2 puff INHALATION QID PRN #18 gm 05/21/19 02/26/20 Rx aerosol inhaler budesonide-formoterol [Symbicort] 2 puffs INH DAILY 02/26/20 02/26/20 History [id number]-[id number] See Rx Instructions PO Q6H PRN MDD 02/26/20 02/26/20 History [Fiorinal] 6 Capsules/24 hours escitalopram oxalate 20 mg PO HS 02/26/20 02/26/20 History lisinopril 20 mg PO QAM 02/26/20 02/26/20 History methylprednisolone See Rx Instructions .ROUTE .COMPLEX 02/26/20 02/26/20 History montelukast [Singulair] 10 mg PO HS 02/26/20 02/26/20 History tramadol 50 mg PO Q6H PRN 02/26/20 02/26/20 History Past Med/Surg History Medical History Asthma Benign meningioma of brain Controlled substance agreement signed (Inactive) History of SCC (squamous cell carcinoma) of skin (Inactive) Hypertension Migraine Obesity Osteoarthritis Radicular pain of right lower extremity Sleep apnea CPAP Stress incontinence Vitamin D deficiency (Inactive) Surgical History H/O bilateral breast reduction surgery History of arthroscopy RT KNEE History of bilateral tubal ligation History of breast biopsy History of colonoscopy History of hysterectomy History of tonsillectomy History of tooth extraction S/P blepharoplasty (04/2018) Social History Smoking Status: Never smoker Second Hand Exposure: No; Do You Dip or Chew Tobacco: No; Hx Alcohol Use: Yes Alcohol type: wine and hard liquor Hx Substance Use: No Preferred Language: [place]ese Communication Ability: Effective Visual Impairment: No Limitations Controls Designer Required: No Beliefs That Will Affect Care: None Current Living Situation: Spouse Other Information That Helps Us Care for You: No Feels Safe at Home: Yes Safety Concerns: Feels Safe At This Time Review of Systems Review of Systems: Constitutional: Negative for fever, chills, sweats Eyes: Negative for eye pain, photophobia, drainage Ear, nose, mouth, throat: Negative for ear pain, nasal congestion, mouth lesions, change in voice Respiratory: Negative for wheezing, sputum production Cardiovascular: Negative for chest pain, palpitations, calf pain Gastrointestinal: Negative for abdominal pain, belching, bloating Genitourinary: Negative for dysuria, urinary incontinence, urinary urgency Musculoskeletal: Negative for deformities Integumentary: Negative for nail changes, skin yellowing, pruritus Neurological: Negative for abnormal speech, seizure type activity Physical Exam Physical Exam: General: Patient sitting quietly in exam room in no acute distress. Speech and thought process appropriate. Mood and affect appropriate. Cognition intact. Head: Normocephalic and atraumatic. ENT: No evidence of nasal or oral mucosal lesions. Mucous membranes are moist. Eyes: Pupils equal round reactive to light. Abdomen: Soft and nondistended. No organomegaly. Bowel sounds active. Back/spine: Loss of lordosis. Nontender over the midline. No focal facet joint tenderness provocative testing. Patient exquisitely tender over the right SI joint to provocative testing and nontender corresponding on the left. Patient tender throughout the entire right gluteal region. Minimal spasm appreciated. No definable myoneural trigger points. Lower extremities: Patient tender over the right greater trochanter direct outpatient. Right hip is nontender with internal/external rotation. SLR is negative bilaterally. Strength testing 5/5 and equal with some guarding on the right with dorsiflexion and EHL testing. Patient has some diminished sensation over the right pretibial region when compared to the left to sharp and dull. Neurologic: Cranial nerves grossly intact. Ambulatory function not witnessed. Results & Data Results & Data ([facility]) Vital Signs (Past 12 Hours) Vital Signs Temp Pulse Pulse Resp BP BP Pulse Ox 02/27/20 07:49 36.7 C 67 16 155/89 H 95 02/27/20 00:35 37 C 67 18 145/95 H 96 02/27/20 00:14 74 18 138/97 92 02/26/20 23:00 67 18 140/88 94 02/26/20 22:00 75 18 142/90 H 94 Code Status & VTE Plan VTE Prophylaxis Plan VTE Prophylaxis will be ordered: Yes Supervising Physician Co-Signing Physician Notes History, physical examination, laboratory studies reviewed. Discussed with Jordan Motta PA-C. Patient symptoms and exam consistent with right-sided lumbosacral spondylosis with SI joint related pain. Patient has been offered right-sided SI joint injection with fluoroscopic guidance for diagnostic and therapeutic purposes. Potential risks, and benefits reviewed. She voiced understanding and elects to proceed. Informed consent obtained.
[2020-02-27] MEDS ORDERED: TRIAMCINOLONE ACET 40 MG/ML VIAL ONE (09:19)
[2020-02-27] MEDS ORDERED: LIDOCAINE HCL 1% 20 ML VIAL ONE (09:19)
[2020-02-27] MEDS ORDERED: IOPAMIDOL INJ 61% 15 ML VIAL ONE (09:19)
[2020-02-27] MEDS ORDERED: MIDAZOLAM HCL 1 MG/ML 2ML VIAL ONE (09:35)
[2020-02-27] MEDS ORDERED: fentaNYL citrate 100 MCG/2 ML VIAL IV PRN (09:40)
[2020-02-27] MEDS ORDERED: ePHEDrine sulfate 50 MG/ML AMP IV PRN (09:40)
[2020-02-27] MEDS ORDERED: ATROPINE SULFATE 0.1 MG/ML 10ML SYR IV PRN (09:40)
--- NOTE | 2020-02-27 09:47 | Anesthesiology Consultation ---
Date of Service February 27, 2020 Assessment & Plan (1) Encounter for pre-operative examination: Chart Review Chart Review: Acceptable Risk for Surgery and Patient NOT seen in Pre Admission Testing Consults Requested none History Surgery Operation Date: 02/27/20 13:50 Proposed Procedures p Sacroiliac Joint Injection - Brucealvarez Ovalle MD, FIPP Height/Weight Height: 5 ft 7 in Weight: 93.5 kg Allergies Allergy/AdvReac Type Severity Reaction Status Date / Time oxycodone [From Percocet] Allergy Mild itchiness Verified 05/28/19 08:10 Medications Home Medications Medication Instructions Recorded Confirmed Last Taken solifenacin 10 mg tablet 10 mg PO QAM #90 tab 04/29/19 02/26/20 Unknown albuterol sulfate 90 mcg/actuation 2 puff INHALATION QID PRN #18 gm 05/21/19 02/26/20 Unknown aerosol inhaler budesonide-formoterol [Symbicort] 2 puffs INH DAILY 02/26/20 02/26/20 Unknown [id number] See Rx Instructions PO Q6H PRN MDD 02/26/20 02/26/20 Unknown [Fiorinal] 6 Capsules/24 hours escitalopram oxalate 20 mg PO HS 02/26/20 02/26/20 Unknown lisinopril 20 mg PO QAM 02/26/20 02/26/20 Unknown methylprednisolone See Rx Instructions .ROUTE .COMPLEX 02/26/20 02/26/20 Unknown montelukast [Singulair] 10 mg PO HS 02/26/20 02/26/20 Unknown tramadol 50 mg PO Q6H PRN 02/26/20 02/26/20 Unknown Active Medications Generic Name Dose Route Start Last Admin Trade Name Freq PRN Reason Stop Dose Admin Hydromorphone HCl 0.2 mg 02/27/20 00:08 02/27/20 08:28 Dilaudid IV 03/12/20 00:07 0.2 mg Q3H PRN Administration Severe Pain Dexamethasone Sodium Phosphate 1.5 mls @ 1 mls/min 02/27/20 06:00 02/27/20 06:34 6 mg/ Syringe IV 03/28/20 05:59 1 mls/min Q6H JONAH Administration Miscellaneous 1 ea 02/26/20 21:00 02/27/20 10:15 Remove Lidoderm Patch N/A 02/27/20 21:15 1 ea DAILY@2100 [facility] Administration Miscellaneous 1 ea 02/27/20 08:00 02/27/20 08:28 Order Awaiting Action N/A 03/28/20 07:59 Not Given QS [facility] Past Medical History Medical History Asthma Benign meningioma of brain Controlled substance agreement signed (Inactive) History of SCC (squamous cell carcinoma) of skin (Inactive) Hypertension Migraine Obesity Osteoarthritis Radicular pain of right lower extremity Sleep apnea CPAP Stress incontinence Vitamin D deficiency (Inactive) Exercise / Class Metabolic Activity II 4-5 Yardwork/Stairs/Walk up hill Past Surgical History Surgical History H/O bilateral breast reduction surgery History of arthroscopy RT KNEE History of bilateral tubal ligation History of breast biopsy History of colonoscopy History of hysterectomy History of tonsillectomy History of tooth extraction S/P blepharoplasty (04/2018) Past Anesthesia History No Hx of Anesthesia Complications and No Family Hx of Anesthesia Complications History of PONV No Hx of PONV and No Hx of Motion Sickness Social History Smoking Status: Never smoker Do You Dip or Chew Tobacco: No Hx Alcohol Use: Yes Alcohol type: wine and hard liquor alcohol intake frequency: 0-2 drinks per day Hx Substance Use: No substance use type: does not use Physical Exam Vital Signs Last Vital Signs Temp 36.7 C 02/27/20 07:49 Pulse 67 02/27/20 07:49 Resp 16 02/27/20 07:49 BP 155/89 H 02/27/20 07:49 Pulse Ox 95 02/27/20 07:49 Testing Laboratory Results 02/26/20 21:13 02/26/20 21:13 Urine Color Yellow 02/27/20 01:37 Urine Appearance Clear (Clear) 02/27/20 01:37 Urine pH 5.5 (4.5-7.5) 02/27/20 01:37 Ur Specific [place] 1.011 (1.000-1.030) 02/27/20 01:37 Urine Protein Negative (Negative) 02/27/20 01:37 Urine Glucose (UA) Negative (Negative) 08/06/20 01:37 Urine Ketones Negative (Negative) 02/27/20 01:37 Urine Nitrite Negative (Negative) 02/27/20 01:37 Ur Leukocyte Esterase Negative (Negative) 02/27/20 01:37
--- NOTE | 2020-02-27 10:33 | Operative Report ---
Post Operative Report Pre & Post Diagnosis Operation Date: 02/27/20 13:50 <No data on this case meets the specified criteria> I identified the patient and participated in the time-out.: Yes Procedure Operation Date: 02/27/20 13:50 Right SI joint injection under fluoroscopy guidance Surgeon Bruce Ovalle MD, FIPP Candle Wrapping Machine Operator None Estimated Blood Loss 0 Findings Consistent with Post-Op Diagnosis Specimens None Anesthesia Type MAC Complications none Disposition Accompanied Patient To Recovery: No Disposition: Recovery Room Description of Procedure SACROILIAC JOINT INJECTION Diagnosis: Lumbosacral spondylosis Side: Right. Surgeon: Dr. Ovalle Prior to starting, the Patients diagnosis and the procedure were reviewed with the patient in detail. Possible risks, complications and alternative therapies were also reviewed. Patients questions were answered. Informed consent was obtained. Allergies and medication list was reviewed. The patient was brought to the fluoroscopy room and placed in prone position on the table. Immediately prior to starting the procedure, a ``time out was conducted with the staff and the patient where the patient was identified, proposed procedure was verified, consent was reviewed and the proper site for the planned procedure was identified. Fluoroscopy was utilized in performing the procedure to assist the placement of the needle, to evaluate the final position of the needle prior to injection and to avoid intravascular injection. Monitors used included intermittent blood pressure with automated device, continuous pulse oximetry and level of consciousness. Patient was not given any intravenous sedation and constant verbal contact was maintained throughout the procedure. Biplanar fluoroscopy was used to assist in the placement of the needle as well as evaluate final needle position prior to the injection. On examination, no signs of skin breakdown or infection were noted at the injection site. Lumbar-sacral area was prepped with duraprep and Betadine solution. Sterile drapes were applied. Posterior superior iliac spine was identified by palpation and under fluoroscopy. Fluoroscope was rotated in the axial plane to obtain an ideal view if the inferior portion of the posterior aspect of the sacroiliac joint. Fluoroscope was then angled in a slight caudal direction. Skin and subcutaneous tissues were infiltrated with local anesthetic and a 22 gauge 3.5 inch Quincke point spinal needle with approximately 15 degree curve was advanced through the skin and subcutaneous tissues towards the sacroiliac joint under direct fluoroscopic guidance into the affected joint. N eedle position was verified to be in the joint in a lateral view. 0.5 cc of Isovue 300 was injected via the needle and the contrast was noted to confirm intra-articular needle placement. Next, a solution containing 40 mg of Triamcinalone acetonide and 3cc of 0.5% ropivacaine-MPF was injected. Needle was then flushed with 0.5 cc of the local anesthetic and withdrawn. Adequate hemostasis was noted. A sterile band aid was applied at the injection site. Patient was monitored for additional 30 minutes in the waiting area and discharged with an accompanying adult. Discharge instructions were reviewed with the Patient. Any specific questions were answered. Emergency phone numbers and contact information was relayed. Patient voiced understanding of the instructions. Follow-up appointment has been scheduled. I attest to the content of the Intraoperative Record and any orders documented therein. Any exceptions are noted below.
[2020-02-27] MEDS ORDERED: ROPIVACAINE 0.5% 5 MG/ML 30 ML VIAL INSTIL ONE (10:39)
--- NOTE | 2020-02-27 10:56 | Anesthesiology Progress Note ---
Date of Service February 27, 2020 Anesthesia Post Procedure Vital Signs Vital Signs: Temp Pulse Pulse Resp BP BP Pulse Ox 02/27/20 10:50 36.5 C 64 16 140/68 95 02/27/20 10:40 68 16 135/88 95 02/27/20 10:34 36.5 C 76 16 152/98 H 95 02/27/20 09:45 36.2 C L 70 16 160/88 H 97 02/27/20 07:49 36.7 C 67 16 155/89 H 95 02/27/20 00:35 37 C 67 18 145/95 H 96 02/27/20 00:14 74 18 138/97 92 02/26/20 23:00 67 18 140/88 94 02/26/20 22:00 75 18 142/90 H 94 02/26/20 20:30 74 18 149/102 H 93 02/26/20 20:18 70 18 171/102 H 98 02/26/20 19:36 37.0 C 85 16 90/65 L 97 Pain Intensity Lower Back: Pain Intensity: 2 Transfer of Care Handoff Completed per policy Notes Mental Status: alert / awake / arousable and participated in evaluation Patient Amnestic to Procedure: Yes Nausea / Vomiting: adequately controlled Pain: adequately controlled Airway Patency, RR, SpO2: stable & adequate BP & HR: stable & adequate Hydration State: stable & adequate Anesthetic Complications: no major complications apparent and Pt Satisfied with anesthetic care
[2020-02-27] MEDS: TRAMADOL HCL 50 MG TABLET PO PRN (11:09)
[2020-02-27] MEDS: lisinopriL 20 MG TAB PO SCH (11:09)
[2020-02-27] MEDS: FLUTICASONE/VILANTEROL 200/25MCG 14 PUFFS/INHALER INH SCH (11:09)
[2020-02-27] MEDS: ACETAMINOPHEN 325 MG TAB PO PRN (11:09)
[2020-02-27] MEDS: DOCUSATE SODIUM 100 MG CAP PO SCH ×2 (11:17→20:52)
[2020-02-27] MEDS: KETOROLAC 30 MG/ML VIAL IV PRN ×2 (12:44→23:24)
[2020-02-27] MEDS: MAGNESIUM HYDROXIDE SUSP 30 ML UDC PO PRN (13:30)
--- NOTE | 2020-02-27 16:40 | Magnetic Resonance Report ---
MR lumbar spine wo con HISTORY: Pain. Radiculopathy. Sciatic pain TECHNIQUE: Multiplanar multisequence MRI of the lumbar spine was performed without the use of contras t. COMPARISON: None. FINDINGS: For the purpose of the report the L5-S1 disc space will be located on axial image 22 of 25. Signal characteristics of the vertebral bodies are unremarkable. There are findings of mild disc ronnie ccation. 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 L1-L2: No significant central canal or neural foraminal narrowing. L2-L3: No significant central canal or neural foraminal narrowing. L3-L4: No significant central canal or neural foraminal narrowing. L4-L5: No significant central canal or neural foraminal narrowing. L5-S1: No significant central canal or neural foraminal narrowing. IMPRESSION: Normal study ACT 112: Negative or not required by law. The above report was generated using voice recognition software. It may contain grammatical, syntax or spelling errors. Electronically signed by: Shashank Lucas M.D. 02/27/2020 4:39 PM
--- NOTE | 2020-02-27 17:29 | Hospitalist Progress Note ---
Date of Service February 27, 2020 Assessment & Plan (1) Sacroiliitis: Sacroiliitis/intractable low back pain -> Likely triggered by imbalance of pelvic pressures secondary to recent knee injury. - Right SI joint injection with Dr. Prater on 02/26 -> This seemed to help pain to some extent, but still with right groin pain and some radiation. 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 - Continue multi-modal pain medication (acetaminophen, ketorolac, and morphine) & heat - Continue IV steroids - Pain management will follow up in the morning. (2) Intractable low back pain: See above (3) HTN, goal below 140/90: BP presently 130/80; highest 160/80 in the setting of pain, so generally likely very well controlled. - Continue lisinopril 20 mg every morning (4) Asthma: No shortness of breath today. - Continue Symbicort 2 puffs inhaled daily & Singular - DuoNebs PRN (5) Urge incontinence: - Continue solifenacin 10 mg daily in the morning (6) Classic migraine with aura: No headache reported today, though back pain may be drawing attention away. - Continue Fiorinal every 6 hours as needed (7) DVT prophylaxis: SCDs - Low DVT risk per admission calculator Admission and Anticipated Discharge Date Admission Date: February 26, 2020 Subjective Seen twice today. First in the AM she is in moderate pain. After the injection, she is moderately more comfortable. Reports no fevers/chills, chest pain, shortness of breath, abdominal pain, nausea, or vomiting. Physical Exam Constitutional: WD/WN, vitals as above Eyes: EOM intact bilaterally; no conjunctival abnormality ENMT: external ear and nose normal, oropharynx normal Neck: trachea midline, no thyromegaly normal visual inspection Respiratory: normal respiratory effort, lungs clear to auscultation no respiratory distress Cardiovascular: RRR, no murmur, no edema Gastrointestinal (Abdomen): Inspection/Auscultation: abdomen normal to inspection; abdomen not distended Musculoskeletal: no cyanosis or clubbing, extremities motor strength 5/5 Spine: + lumbar spinal tenderness (SA joint) and + paraspinal tenderness Skin: no rashes, warm and dry Neurologic: moves all extremities and awake Psychiatric: Orientation: alert, oriented to person and cooperative Results & Data Results & Data ([place]) Vital Signs (Past 12 Hours) Vital Signs Temp Pulse Resp BP Pulse Ox 02/27/20 15:50 36.7 C 78 18 130/79 97 02/27/20 12:48 36.1 C L 71 18 142/81 H 96 02/27/20 11:05 37.1 C 67 16 133/82 98 02/27/20 10:50 36.5 C 64 16 140/68 95 02/27/20 10:40 68 16 135/88 95 02/27/20 10:34 36.5 C 76 16 152/98 H 95 02/27/20 09:45 36.2 C L 70 16 160/88 H 97 02/27/20 07:49 36.7 C 67 16 155/89 H 95 PG Care Time/CCT Total # of Minutes Spent Total Time Spent with Patient: Total time spent is greater than 50% in coordination of care (as documented) at patient's floor/unit and/or counseling patient: Coding Level of Care Code 77578 Subseq Hosp Care Lvl 2 Diagnoses Sacroiliitis M46.1 Intractable low back pain M54.5 HTN, goal below 140/90 I10 Asthma J45.909 Urge incontinence N39.41 Classic migraine with aura G43.109 DVT prophylaxis Z29.9
[2020-02-27] MEDS: MoRPHine SULFATE 4 MG/ML 1 ML CARP\\VIAL IV PRN ×2 (17:31→23:22)
[2020-02-27] MEDS: MONTELUKAST SODIUM 10 MG TABLET PO SCH (20:49)
[2020-02-27] MEDS: ESCITALOPRAM OXALATE 20 MG TAB PO SCH (20:49)
[2020-02-28] MEDS: VESICARE~ORDER AWAITING ACTION SCH ×2 (00:04→08:00)
[2020-02-28] MEDS: KETOROLAC 30 MG/ML VIAL IV PRN ×3 (05:54→20:41)
[2020-02-28] MEDS: FLUTICASONE/VILANTEROL 200/25MCG 14 PUFFS/INHALER INH SCH (07:59)
[2020-02-28] MEDS: TRAMADOL HCL 50 MG TABLET PO PRN ×3 (07:59→23:43)
[2020-02-28] MEDS: DOCUSATE SODIUM 100 MG CAP PO SCH ×2 (07:59→20:49)
[2020-02-28] MEDS: ACETAMINOPHEN 325 MG TAB PO PRN ×2 (07:59→14:42)
[2020-02-28] MEDS: lisinopriL 20 MG TAB PO SCH (08:00)
--- NOTE | 2020-02-28 08:18 | Anesthesiology Progress Note ---
Date of Service February 28, 2020 Anesthesia Post Procedure Vital Signs Vital Signs: Temp Pulse Resp BP Pulse Ox 02/28/20 07:05 36.5 C 61 16 133/86 97 02/27/20 23:05 37.1 C 84 16 101/66 93 02/27/20 15:50 36.7 C 78 18 130/79 97 02/27/20 12:48 36.1 C L 71 18 142/81 H 96 02/27/20 11:05 37.1 C 67 16 133/82 98 02/27/20 10:50 36.5 C 64 16 140/68 95 02/27/20 10:40 68 16 135/88 95 02/27/20 10:34 36.5 C 76 16 152/98 H 95 02/27/20 09:45 36.2 C L 70 16 160/88 H 97 Notes Mental Status: alert / awake / arousable and participated in evaluation Patient Amnestic to Procedure: Yes Nausea / Vomiting: adequately controlled Pain: adequately controlled Airway Patency, RR, SpO2: stable & adequate BP & HR: stable & adequate Hydration State: stable & adequate Anesthetic Complications: no major complications apparent
--- NOTE | 2020-02-28 08:47 | Pain Management Progress Note ---
Date of Service February 28, 2020 Assessment & Plan (1) Sacroiliitis: Present on Admission?: Yes (2) Radicular pain of right lower extremity: * Patient appeared to have at least 50% relief for duration of local anesthetic indicating at least partial SI joint etiology. Expectations regarding benefit from the steroid component of the injection were discussed which should begin over the next few days. * Will initiate a trial of baclofen 10 mg twice daily-3 times daily * Begin application of K pad heat today * MRI discussed with patient which failed reveal evidence of spinal canal or neuroforaminal narrowing. * Consider piriformis intramuscular injections pending response to the SI joint procedure at time of her follow-up visit in the pain clinic * Consider discharge with meloxicam 15 mg daily to continue with anti- inflammatory as she is experiencing benefit from Toradol Present on Admission?: Yes Subjective Mrs. Bettencourt underwent a right SI joint injection yesterday for treatment of her right-sided lumbosacral pain extending to the gluteal, hip, groin and thigh region. The patient indicated 50% relief of her pain for approximately 4 hours. She reported improved ability to tolerate positional change and walking during this timeframe as well. She then reported a slight increase in pain to her preinjection level throughout the afternoon. She does feel at this time that she is slightly improved but minimally. She is reporting that she is able to find a comfortable position in bed which she was unable to prior to the injection. She continues to have discomfort with ambulation and remains reliant on the walker. Her pain remains achy, throbbing in the right lumbosacral, gluteal extending into the lateral hip, groin and thigh region. She continues to occasionally have the radicular pain to the pretibial region with some paresthesia. She reported no side effects of the SI joint injection. She is finding Toradol to be helpful at managing her symptoms. Patient denies left lower extremity pain or left-sided lumbosacral/gluteal pain. She has no further constitutional plaints. Plan of care discussed with Dr. Ciara Torres. Physical Exam Physical Exam: General: Patient was standing and ambulating with a walker upon entering. She appeared to be in moderate distress. Speech and thought process appropriate. Appears moderately anxious. Cognition intact. Back/spine: Band-Aid was removed from SI joint injection site. No evidence of edema, erythema or skin breakdown. The patient remains tender to provocative testing of the right SI joint. She is exquisitely tender throughout the gluteal region with slightly hyperalgesic response. Scattered appreciable spasm. Nontender over the midline. Moderately tender over the right L5-S1 facet region. Facet loadbearing test negative bilaterally. Extension to 5-10 degrees without increase in axial pain. Lower extremities: SLR increased pain in the gluteal region on the right and negative on the left. Gabrielle maneuver is equivocal on the right. Piriformis maneuver was positive on the right. Gabrielle and piriformis maneuver negative on the left. Neurologic: Cranial nerves grossly intact. Ambulation slowed and guarded. Results Diagnostic Review MRI: non enhanced and reports reviewed MRI Findings: [place], [place] [phone] Magnetic Resonance Report Patient: NARDA BETTENCOURT Date: 02/26/20 MR#: [id number]: [address] Acct ID:[id number]: Date: [address] [place] [address] Zip: [place] [address] Age: 64Location: 3W Sex: F Room/Bed: [facility] Att Phy: Doug Faulkner MDDiagnosis: INTRACTABLE LOW BACK PAIN Terri Phy: Lola Olivares MDService Date: 02/27/20 Fam Phy:Interpreting Phy: Shashank Lucas MD Admit Phy: Nomi San M.D. Ordering Phy: Doug Faulkner MD cc: ~ MR lumbar spine wo con HISTORY: Pain. Radiculopathy. Sciatic pain TECHNIQUE: Multiplanar multisequence MRI of the lumbar spine was performed without the use of contrast. COMPARISON: None. FINDINGS: For the purpose of the report the L5-S1 disc space will be located on axial image 22 of 25. Signal characteristics of the vertebral bodies are unremarkable. There are findings of mild disc desiccation. 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 L1-L2: No significant central canal or neural foraminal narrowing. L2-L3: No significant central canal or neural foraminal narrowing. L3-L4: No significant central canal or neural foraminal narrowing. L4-L5: No significant central canal or neural foraminal narrowing. L5-S1: No significant central canal or neural foraminal narrowing. IMPRESSION: Normal study ACT 112: Negative or not required by law. The above report was generated using voice recognition software. It may contain grammatical, syntax or spelling errors. Electronically signed by: Shashank Lucas M.D. 02/27/2020 4:39 PM Dictated: 02/27/20 1637 Transcribed: 02/27/20 1637
[2020-02-28] MEDS: BACLOFEN 10 MG TAB PO SCH ×3 (09:53→20:49)
--- NOTE | 2020-02-28 11:21 | Orthopedic Consultation ---
Date of Consultation February 28, 2020 Assessment & Plan (1) Radicular pain of right lower extremity: Patient is scheduled to see Dr. Reid in our clinic in a few weeks. 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 Will defer back pain/radicular issues to Dr. Prater's service. Cont plan of action already established. (2) Intractable low back pain: History of Present Illness Reason for Consultation: Right lower back and hip pain Attending Physician: Doug Faulkner MD History of Present Illness This 64 yo F is a patient of ours at [facility], who was recent seen by Zach Chakraborty PA-C and Dr. Yola Reid. She had a corticosteroid injection into her Left knee last week and was also prescribed a Medrol dospak for onset of Rt SI joint pain earlier this week. Her pain became so severe that she required the use of a cane to ambulate. She states that after pain began radiating into her groin and lower leg, she zuleyka to the ED and was admitted for pain control. Yesterday she underwent a right SI joint injection for treatment of her right-sided lumbosacral pain extending to the gluteal, hip, groin and thigh region. The patient indicated moderate relief of her pain for approximately 4 hours. She is states that she is able to find a comfortable position in bed, which she was unable to do prior to the injection. She continues to have discomfort with ambulation and remains reliant on the walker. Her pain remains achy, throbbing in the right lumbosacral, gluteal extending into the lateral hip, groin and thigh region. She continues to occasionally have the radicular pain to the pretibial region with some paresthesia. She reported no side effects of the SI joint injection. She is finding Toradol to be helpful at managing her symptoms. Patient denies left lower extremity pain or left-sided lumbosacral/gluteal pain. Allergies Allergy/AdvReac Type Severity Reaction Status Date / Time oxycodone [From Percocet] Allergy Mild itchiness Verified 05/28/19 08:10 Home Medications Home Medications Medication Instructions Recorded Confirmed Type solifenacin 10 mg tablet 10 mg PO QAM #90 tab 04/29/19 02/26/20 Rx albuterol sulfate 90 mcg/actuation 2 puff INHALATION QID PRN #18 gm 05/21/19 02/26/20 Rx aerosol inhaler budesonide-formoterol [Symbicort] 2 puffs INH DAILY 02/26/20 02/26/20 History [id number] See Rx Instructions PO Q6H PRN MDD 02/26/20 02/26/20 History [Fiorinal] 6 Capsules/24 hours escitalopram oxalate 20 mg PO HS 02/26/20 02/26/20 History lisinopril 20 mg PO QAM 02/26/20 02/26/20 History methylprednisolone See Rx Instructions .ROUTE .COMPLEX 02/26/20 02/26/20 History montelukast [Singulair] 10 mg PO HS 02/26/20 02/26/20 History tramadol 50 mg PO Q6H PRN 02/26/20 02/26/20 History Patient History Medical History Asthma Benign meningioma of brain Controlled substance agreement signed (Inactive) History of SCC (squamous cell carcinoma) of skin (Inactive) Hypertension Migraine Obesity Osteoarthritis Radicular pain of right lower extremity Sleep apnea CPAP Stress incontinence Vitamin D deficiency (Inactive) Surgical History H/O bilateral breast reduction surgery History of arthroscopy RT KNEE History of bilateral tubal ligation History of breast biopsy History of colonoscopy History of hysterectomy History of tonsillectomy History of tooth extraction S/P blepharoplasty (04/2018) Social History Smoking Status: Never smoker Second Hand Exposure: No; Hx Alcohol Use: Yes Alcohol type: wine and hard liquor Hx Substance Use: No Preferred Language: Kazakh Communication Ability: Effective Visual Impairment: No Limitations Carpet Measurer Required: No Beliefs That Will Affect Care: None marital status: Current Living Situation: Spouse Feels Safe at Home: Yes Review of Systems Review of Systems: All systems reviewed & are unremarkable except as noted in Subjective Physical Exam Physical Exam: Right Hip: neg SLRT. Neg Stinchfield test . Neg log roll. No pain with passive flexion of hip to 120 degrees. No pain with passive internal or external rotation. Neg YANCI. No pain with active abduction or adduction. No TTP in groin area. Quad strength 4/5. NV intact. FROM in knee. Back: TTP over Rt SI joint and Rt lower lumbar spine areas. No edema, erythema, ecchymosis, warmth or palpable deformity. No dermatomal deficit. Results & Data ([facility]) Vital Signs (Past 12 Hours) Vital Signs Temp Pulse Resp BP Pulse Ox 02/28/20 07:05 36.5 C 61 16 133/86 97 Laboratory Results Lab Results 02/26/20 02/26/20 02/27/20 Range/Units 21:13 21:13 01:37 WBC 10.64 (4.8-10.8) K/uL RBC 4.36 (4.2-5.4) M/uL Hgb 13.2 (12.0-16.0) g/dL Hct 39.4 (37-47) % MCV 90.4 (80-100) fL MCH 30.3 (25-34) pg MCHC 33.5 (32-36) g/dL RDW Std Deviation 46.9 H (36.4-46.3) fL RDW Coeff of Juanito 14.1 (11.5-14.5) % Plt Count 300 (130-400) K/uL MPV 9.6 (7.4-10.4) fL Immature Gran % (Auto) 1.1 % Neut % (Auto) 68.8 % Lymph % (Auto) 18.0 % Hickman % (Auto) 11.2 % Eos % (Auto) 0.7 % Baso % (Auto) 0.2 % Neut # (Auto) 7.33 H (1.4-6.5) K/uL Lymph # (Auto) 1.91 (1.2-3.4) K/uL Hickman # (Auto) 1.19 H (0.11-0.59) K/uL Eos # (Auto) 0.07 (0-0.5) K/uL Baso # (Auto) 0.02 (0-0.2) K/uL Immature Gran # (Auto) 0.12 H (0.00-0.02) K/uL Sodium 136 (136-145) mmol/L Potassium 4.4 (3.5-5.1) mmol/L Chloride 106 (98-107) mmol/L Carbon Dioxide 25 (21-32) mmol/L Anion Gap 5.0 (3-11) BUN 24 H (7-18) mg/dl Creatinine 0.92 (0.6-1.2) mg/dl Est Cr Clr Drug Dosing 73.3 ml/min Est GFR ( Amer) 76.8 Est GFR (Non-Af Amer) 66.3 BUN/Creatinine Ratio 26.5 H (10-20) Glucose 112 H (70-99) mg/dl Calcium 8.5 (8.5-10.1) mg/dl Urine Color Yellow Urine Appearance Clear (Clear) Urine pH 5.5 (4.5-7.5) Ur Specific Dexter 1.011 (1.000-1.030) Urine Protein Negative (Negative) Urine Glucose (UA) Negative (Negative) Urine Ketones Negative (Negative) Urine Blood Negative (Negative) Urine Nitrite Negative (Negative) Urine Bilirubin Negative (Negative) Urine Urobilinogen Negative (Negative) Ur Leukocyte Esterase Negative (Negative)
[2020-02-28] MEDS: MAGNESIUM HYDROXIDE SUSP 30 ML UDC PO PRN ×2 (12:23→19:25)
--- NOTE | 2020-02-28 17:35 | Hospitalist Progress Note ---
Date of Service February 28, 2020 Assessment & Plan (1) Sacroiliitis: Sacroiliitis/intractable low back pain -> Likely triggered by imbalance of pelvic pressures secondary to recent knee injury. - Right SI joint injection with Dr. Prater on 02/26 -> This seemed to help pain to some extent, but still with right groin pain and some radiation. 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 - Continue multi-modal pain medication (acetaminophen, ketorolac, and morphine) & heat - Started standing baclofen TID today. Also seen by orthopedics who feel that knee issues are stable and no issues with hip. (2) Intractable low back pain: See above (3) HTN, goal below 140/90: BP presently 130/80; highest 160/80 in the setting of pain, so generally likely very well controlled. - Continue lisinopril 20 mg every morning (4) Asthma: No shortness of breath today. - Continue Symbicort 2 puffs inhaled daily & Singular - DuoNebs PRN (5) Urge incontinence: - Continue solifenacin 10 mg daily in the morning (6) Classic migraine with aura: No headache reported today, though back pain may be drawing attention away. - Continue Fiorinal every 6 hours as needed (7) DVT prophylaxis: SCDs - Low DVT risk per admission calculator Admission and Anticipated Discharge Date Admission Date: February 28, 2020 Subjective Still with significant pain despite injection. Reports no fevers/chills, chest pain, shortness of breath, abdominal pain, nausea, or vomiting. Physical Exam Constitutional: WD/WN, vitals as above Eyes: EOM intact bilaterally; no conjunctival abnormality ENMT: external ear and nose normal, oropharynx normal Neck: trachea midline, no thyromegaly normal visual inspection Respiratory: normal respiratory effort, lungs clear to auscultation no respiratory distress Cardiovascular: RRR, no murmur, no edema Gastrointestinal (Abdomen): Inspection/Auscultation: abdomen normal to inspection; abdomen not distended Musculoskeletal: no cyanosis or clubbing, extremities motor strength 5/5 Spine: + lumbar spinal tenderness (SA joint) and + paraspinal tenderness Skin: no rashes, warm and dry Neurologic: moves all extremities and awake Psychiatric: Orientation: alert, oriented to person and cooperative Results & Data Results & Data ([facility]) Vital Signs (Past 12 Hours) Vital Signs Temp Pulse Resp BP Pulse Ox 02/28/20 15:06 36.5 C 72 18 97/63 L 94 02/28/20 07:05 36.5 C 61 16 133/86 97 PG Care Time/CCT Total # of Minutes Spent Total Time Spent with Patient: Total time spent is greater than 50% in coordination of care (as documented) at patient's floor/unit and/or counseling patient: Coding Level of Care Code 89956 Subseq Hosp Care Lvl 2 Diagnoses Sacroiliitis M46.1 Intractable low back pain M54.5 HTN, goal below 140/90 I10 Asthma J45.909 Urge incontinence N39.41 Classic migraine with aura G43.109 DVT prophylaxis Z29.9
[2020-02-28] MEDS: MONTELUKAST SODIUM 10 MG TABLET PO SCH (20:49)
[2020-02-28] MEDS: ESCITALOPRAM OXALATE 20 MG TAB PO SCH (20:49)
[2020-02-28] MEDS: MoRPHine SULFATE 4 MG/ML 1 ML CARP\\VIAL IV PRN (23:34)
[2020-02-29] MEDS: KETOROLAC 30 MG/ML VIAL IV PRN (05:02)
[2020-02-29] MEDS: ACETAMINOPHEN 325 MG TAB PO PRN ×3 (07:36→21:23)
[2020-02-29] MEDS: TRAMADOL HCL 50 MG TABLET PO PRN ×3 (07:37→21:23)
[2020-02-29 08:46] LABS: BUN Creatinine Ratio 23.6 (10-20); Calcium 8.6 mg/dl (8.5-10.1); Creatinine Clr Calc Pharmacy 78.6 ml/min; Est GFR (African American) 83.3; Est GFR (Non-African American) 71.9; Potassium 4.6 mmol/L (3.5-5.1)
[2020-02-29] MEDS ORDERED: POLYETHYLENE (MIRALAX) 17 GM PACK PO STA (09:51)
[2020-02-29] MEDS ORDERED: POLYETHYLENE (MIRALAX) 17 GM PACK PO PRN (09:51)
--- NOTE | 2020-02-29 09:54 | Hospitalist Progress Note ---
Date of Service February 29, 2020 Assessment & Plan (1) Intractable low back pain: seems heavily biomechanical. 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 flared because of this (spastic piriformis will "jam up" ipsilateral SI creating pain) - hence why SI injection helped for a little then not ongoing relief leg paresthesiae likely from peripheral compression of sciatic nerve mediated by tight pelvic stabilizer muscles compressing sciatic nerve; also given pattern of lower leg paresthesia, probably has an element of superficial peroneal nerve compression at/around her knee (likely from distal IT band); MRI very reassuring - although on his personal review Dr Padron did call to say there might be a little plausibility to a mild nerve root compression in lower lumbar spine (can therefore give consideration to gabapentin, but will hold on that for now since aggressively going after biomechanical component, and starting valium instead of baclofen as muscle relaxant - and therefore would want to minimize introduction of potentially sedating meds at the same time; also failure to improve w medrol dose merari prior to admission does make impingement as culprit somewhat less likely) OMT done / instructed to carry through w muscle energy techniques demonstrated for a goal of 3-5 repetitions each, 3-4 times a day -diclofenac gel to R lumbar paraspinals, R piriformis region, R IT band QID -valium 5mg TID prn spasms (will stop baclofen - she's not seeing any real help from it) -mag sulfate 3g IV x1 (anecdotally i've sometimes seen this help alleviate some of the hyperacuity to muscle spasms - discussed this being more anecdotal than evidence and discussed risks/benefits - pt ok with giving therapeutic trial) -mobilize as best as possible (2) Somatic dysfunction: Lspine, pelvis - OMT as above done by myself and Dr Corbett R3. time in room ~9a, time out ~955a, about 10mins OMT time, remainder of ~45mins face to face gathering history, discussing diagnostic thoughts/plan, discussing risks/benefits of treatment plans. Admission and Anticipated Discharge Date Admission Date: February 28, 2020 Subjective predominantly R sided back, buttock and leg pain. about 2 months of ongoing onset--> worsening. was seeing sports med for her knee most of this year - but wasn't really bothering her more than normal. then 10 mile bike ride mid december - knee got really bad. steroid injection didnt help. knows she was walking different, more altered gait. gradual onset of R SI region pain - now very intense. nothing prior was helping - steroid to knee no help. meds not really helping. found a few hydrocodone those didn't help. eventually got to where she was really unable to bear the pain - came to hospital for further eval and management. pain now R low back, R SI region, R buttock. radiates to R groin. pain down lateral R leg. dull paresthesia feeling R lateral leg from the knee down Review of Systems Review of Systems: All systems reviewed & are unremarkable except as noted in HPI & below Physical Exam Physical Exam: ost/msk - (done in conjuction w Dr Corbett R3 - i either personally performed the OMT (pelvis/sacral) or directly supervised (lumbar) - R sided buttock musculature in region of piriformis and gemellis high tone/tender/decreased ROM - inhibitory pressure and LAS followed by post- isometric relaxation muscle energy - some fasciculations and improvement in tissue texture. R anterior innominate with surrounding soft tissue high tone/tender/decreased ROM - reciprocal inhibition muscle energy - improved alignment and tissue tone - a little less tender. pt tolerated well. R lateral thigh soft tissue high tone/tender/decreased ROM c/w IT band hypertonicity. dr corbett found R sided Lspine paraspinals to be high tone/tender/decreased ROM and noted type 2 dysfunctions of segments - treated predominantly with direct and myofascial techniques - improved as well. Results & Data Results & Data ([facility]) Vital Signs (Past 12 Hours) Vital Signs Temp Pulse Resp BP Pulse Ox 02/29/20 00:15 97.7 F 59 L 16 135/85 99 PG Care Time/CCT Total # of Minutes Spent Total Time Spent with Patient: Total time spent is greater than 50% in coordination of care (as documented) at patient's floor/unit and/or counseling patient: Coding Level of Care Code None Diagnoses Intractable low back pain M54.5 Somatic dysfunction M99.09 CPT Codes Musculoskeletal - Musculoskeletal: [address] Tr 1-2 Body regions ([id number])
[2020-02-29] MEDS: lisinopriL 20 MG TAB PO SCH (10:05)
[2020-02-29] MEDS: FLUTICASONE/VILANTEROL 200/25MCG 14 PUFFS/INHALER INH SCH (10:06)
[2020-02-29] MEDS: DOCUSATE SODIUM 100 MG CAP PO SCH ×2 (10:06→20:01)
[2020-02-29] MEDS: OXYBUTYNIN CHLORIDE XL 5 MG TABCR PO SCH (10:06)
[2020-02-29] MEDS: BACLOFEN 10 MG TAB PO SCH (10:08)
[2020-02-29] MEDS: MAGNESIUM SULFATE / D5W 1 GM/100 ML BAG IV SCH ×3 (10:32→14:26)
[2020-02-29] MEDS: diazePAM 5 MG TABLET PO PRN ×2 (11:36→17:05)
--- NOTE | 2020-02-29 12:59 | Billing Data ---
Date of Service February 29, 2020 Coding Level of Care Code 85132 Prolonged Care (int'l)
[2020-02-29] MEDS: DICLOFENAC SOD 1% GEL 100 GM TUBE EXT SCH ×3 (13:49→22:29)
--- NOTE | 2020-02-29 15:16 | Billing Data ---
Date of Service February 29, 2020 Coding Level of Care Code 65888 Subseq Hosp Care Lvl 2
[2020-02-29] MEDS: MONTELUKAST SODIUM 10 MG TABLET PO SCH (20:01)
[2020-02-29] MEDS: ESCITALOPRAM OXALATE 20 MG TAB PO SCH (20:01)
[2020-02-29] MEDS: MoRPHine SULFATE 4 MG/ML 1 ML CARP\\VIAL IV PRN (22:26)
[2020-03-01] MEDS: TRAMADOL HCL 50 MG TABLET PO PRN ×2 (05:26→13:45)
[2020-03-01] MEDS: ACETAMINOPHEN 325 MG TAB PO PRN ×2 (05:27→13:45)
[2020-03-01] MEDS: OXYBUTYNIN CHLORIDE XL 5 MG TABCR PO SCH (09:04)
[2020-03-01] MEDS: FLUTICASONE/VILANTEROL 200/25MCG 14 PUFFS/INHALER INH SCH (09:04)
[2020-03-01] MEDS: lisinopriL 20 MG TAB PO SCH (09:04)
[2020-03-01] MEDS: DICLOFENAC SOD 1% GEL 100 GM TUBE EXT SCH ×2 (09:05→13:45)
[2020-03-01] MEDS: DOCUSATE SODIUM 100 MG CAP PO SCH (09:20)
[2020-03-01] MEDS: diazePAM 5 MG TABLET PO PRN (10:54)
--- NOTE | 2020-03-01 17:57 | Discharge Summary ---
Date of Service March 01, 2020 Admission HPI Per Admitting Provider The patient is a 64-year-old female with a past medical history including urge incontinence, SAURAV, impaired fasting glucose, hyperlipidemia, hypertension, classic migraine with aura, ADD without hyperactivity and asthma. A few weeks ago, the patient reports having injured her knee, for which she has been undergoing injections from orthopedic surgery. She more recently developed severe and worsening low back pain, with radiation around her right hip toward her right groin and down periodically to her right ankle. She had also been placed on tramadol and Medrol Dosepak, and more recently with hydrocodone and NSAIDs without sufficient reduction in pain. Principal Diagnosis biomechanical back pain Discharge Exam gen aaox3 pleasant nad heent nc at mmm breathing unlabored no accessory muscles good effort skin no rashes no pallor or icterus. msk/ost - R sided pelvic musculature (region of piriformis most dominantly) high tone/tender/decreased ROM - LAS and ME - improved; pt tolerated well. R anterior innominate (although barely so compared to yesterday's nearly 2cm discrepancy) - ME - improved. R sided Lspine paraspinals sl high tone/tender/decreased ROM - direct myofascial - improved. pt tolerated well. Discharge Data Allergies Allergy/AdvReac Type Severity Reaction Status Date / Time oxycodone [From Percocet] Allergy Mild itchiness Verified 05/28/19 08:10 Consultations 02/26/20 23:30 ED Decision to Admit Stat 02/27/20 00:40 Consult Case Management - Discharge Planning Routine 02/27/20 04:16 Consult Pain Management Routine 02/28/20 07:08 Consult Orthopedic Surgery Routine Procedures Performed Operation Date: 02/27/20 13:50 Actual Procedures p Right Sacroiliac Joint Injection(Right) - Bruce Ovalle MD, FIPP Ordered Studies 02/27/20 10:00 FL fluoroscopy <1hr Routine FL sacrum Routine 02/27/20 14:36 MR lumbar spine wo con Urgent Hospital Course (1) Intractable low back pain: seems heavily biomechanical. 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 flared because of this (spastic piriformis will "jam up" ipsilateral SI creating pain) - hence why SI injection helped for a little then not ongoing relief leg paresthesiae likely from peripheral compression of sciatic nerve mediated by tight pelvic stabilizer muscles compressing sciatic nerve; also given pattern of lower leg paresthesia, probably has an element of superficial peroneal nerve compression at/around her knee (likely from distal IT band); MRI very reassuring OMT done / instructed on 02/28, reiterated this to pt on 03/01 - to carry through w muscle energy techniques demonstrated for a goal of 3-5 repetitions each, 3-4 times a day -diclofenac gel to R lumbar paraspinals, R piriformis region, R IT band QID -valium 5mg TID prn spasms (although probably HS use more than daily i expect) -mag sulfate 3g IV x1 given on 02/28 -mobilize as best as possible -improved, feeling better - stable for home - see instructions. anticipate follow up w Dr Corbett DO for ongoing OMT until this totally improves (2) Somatic dysfunction: Lspine, pelvis - OMT as above Total Time Total Time Spent Total Time Spent (In Minutes): >30 mins, separate from time performing OMT Discharge Plan Discharge Items Patient Disposition: Home - Self-Care Reason For Visit: INTRACTABLE LOW BACK PAIN Discharge Diagnosis: biomechanical back pain (see below) Activity: Resume your previous activity Non-emergency contact: Primary Care Provider Call non-emergency contact if: you have any medication questions and your symptoms worsen Follow-up/Referrals: Lola Olivares MD [Primary Care Provider] - Diet: Regular Addtl Attending Provider Instructions: biomechanical back pain -after a lot of looking / evaluating/ trying different treatment options - it looks pretty clear at this point that the back pain was brought on by biomechanical problems -specifically - when you were compensating for the bad knee, the way people walk (and it looks like this happened with you) starts to have them use hip flexor/rotator muscles more to move their leg than knee flex/extend muscles -- and in so doing, you creating a strain pattern that led to the pain you were feeling -the "centerpiece" of that strain patter appears to be the pelvic stabilizer muscles - use piriformis as the model, but the other neighboring muscles were involved as well. they attach hip to sacrum (in the case of piriformis) and peripheral pelvis to sacrum (in the case of the other neighboring muscles) - and so when they get spastic/strained/tight, they'll set off a whole cascade of bad events -localized pain- when a muscle goes into spasm, it will "decide" that its resting length is shorter than the actual distance between the bones it connects. since the bones can only move so far, this creates pain almost mouna to the signal the muscle would send if it's being stretched or torn -joint pain - specific to your pelvic stabilizer muscles, once they were too tight, they'll pull your sacrum forward on that side, jamming up that SI joint causing joint pain. since you have mild SI arthritis before all this happened, it ends up that the jammed up SI joint hurts a lot more (this also explains why the injection helped for a little - while it was basically numb from the lidocaine, things felt better - but since the "root cause" of the tight muscles jamming up the joint hadn't changed, once the lidocaine wore off then the pain came right back -nerve compression - the sciatic nerve runs right under piriformis for most people (actually right through it in about 10% of people) - so when that muscle is tight, it can cause compression on the sciatic nerve and create a radiating pain -further secondary strains (see below w psoas and IT band) ---beyond piriformis, you also then showed areas of strain w your psoas muscle -- it attaches to the side of much of the lumbar spine (especially when you look at it as it's functional unit of the iliopsoas) and then down to the inside of your pelvis. because the sacrum was jamming up against the pelvis (SI joint pain above), then it also shoved that half of your pelvis forward (remember at worst, that side was almost an inch off from the other side!) -- this then moved the insertion (anchor) of the psoas muscle down almost an inch - creating pain/strain in that muscle as well ---in addition to both of those, your IT band also started to create pain - some of that can be secondary strain from it's origin (anchor point) getting moved from the sacral torque, but more than that, it was probably a lot of strain from how people walk when they're compensating for a bad knee. because IT band is much more fibrous tissue than muscle, it wasn't really something we directly addressed with the manipulative medicine, but IS something that ongoing use of the voltaren gel (and a foam roller or massage stick) can help loosen up more -putting it all together, it was a yucky recipe for misery! ---> treatment -we'll want you to use the voltaren (diclofenac) gel four times a day (remember as we talked, it doesn't work all that great "as needed" but while in a perfect world it's a four times a day every day med, most people don't remember all four times a day all that well - but if you're able to pull off 3 routinely it'll still be helping). for the next week, put it on your low back muscles to the right of your lumbar spine, to the pelvic stabilizer muscles (basically the middle to lower part of your right buttock) and to the right IT band (down the side of your leg). as things get better / as the pain is less, you'll probably be able to stop doing it to the lumbar region first (it looked more to be "fallout" from the strain than the root cause) - and then it'll be based on how you're feeling to determine when it's time to stop in the pelvic stabilizer region and the IT band. (because the pelvic stabilizer muscles were the central culprit, they might need gel the longest, but because IT band is so fibrous and slow to heal, it might be a "straggler" that just takes longer to get better) -use the valium (diazepam) up to three times a day as needed for spasms. remember that it is a reasonably sedating medicine - so definitely don't use it if you need to be doing anything precise, or if you need to be driving. over the next few days, hopefully what we'll see is that you need it less and less to where probably you'll just need a dose at bedtime to help you feel less tight and spastic as you try to sleep. then, we'll want you probably off of it altogether by maybe 2 weeks from now - simply because over time peope do start to get physically dependant - and while less than 2 weeks is probably overly paranoid in this regard - it'll definitely keep you out of trouble! -tramadol, tylenol, ibuprofen usually don't help a ton for things like this - they don't really treat the "root cause" of the pain (muscle spasm, and nerve loops within the muscle itself that keep the muscle in spasm), and because the pain that the tight muscles can generate is pretty intense, they're often not "strong" enough to just dull out the pain. that said, they're not going to be dangerous to try if you need something to help try to take the edge off a little more - it's just that I wouldn't expect a whole lot of impact out of them -ongoing OMT (manipulative treatment) - Dr Matias Corbett DO was the resident with me yesterday - he's in the office a few afternoons this week, and since he knows your situation and helped me work on you - it would be ideal to just transition you over to him to carry through on this. he's at [address], [address]; their number is [phone]. as a backup plan - the other DO residents who would do well with this (but don't know your situation) are Libby Cormier, Malcolm, and Mo. As "plan C" Edward Faulkner DO - at the [facility] office - is also really good at OMT and would do well to carry through with treating this -the two "stretches" (knee-chest, and pushing your leg across) are really two manipulative medicine techniques that are just easy to translate to doing at home. ideally, do about 5 repetitions of both of these, and do them 3-5 times a day. it'll be better when Campbell is able to assist - because people can always generate more force/stretch when someone else is providing the resistance - but they're also ones that you're able to do on your own -light cardiovascular exercise - both for simple range of motion, and for blood flow, we'll want you doing some form of light cardiovascular exercise. for the range of motion - something that has you moving without a whole lot of impact (walking gently (and not uphill), pedaling your stationary bike (the pedaling is great for the current strain pattern - but using the stationary bike so you don't flare your knee and start this whole thing over!) will help keep the muscles loose and get them through a good range of motion. beyond that, muscles will be in a more relaxed state when they have better bloodflow - so spike ething that gets your heart rate up for ~20-30minutes (without much impact to irritate things) will also help get this looser/keep it looser overall. as long as you're going gentle, with no real impact, it's Ok to start this sort of stuff once you're home Pending Studies at Discharge: No Stand-Alone Forms: My [facility], Smoking Cessation Medications and DC Order Prescriptions: New diclofenac sodium 1 % gel 4 gm TOP QID Qty: 100 RF: 3 diazepam [Valium] 5 mg tablet 5 mg PO TID PRN (Reason: muscle spasms) Qty: 14 RF: 0 Continued solifenacin [Vesicare] 10 mg tablet 10 mg PO QAM Qty: 90 RF: 3 albuterol sulfate [Ventolin HFA] 90 mcg/actuation HFA aerosol inhaler 2 puff INHALATION QID PRN (Reason: Shortness Of Breath) Qty: 18 RF: 3 tramadol 50 mg tablet 50 mg PO Q6H PRN (Reason: Pain) RF: 0 lisinopril 20 mg tablet 20 mg PO QAM RF: 0 [id number] [Fiorinal] 50-325-40 mg capsule See Rx Instructions PO Q6H MDD 6 Capsules/24 hours PRN (Reason: Migraine Headache) RF: 0 montelukast [Singulair] 10 mg tablet 10 mg PO HS RF: 0 escitalopram oxalate 20 mg tablet 20 mg PO HS RF: 0 budesonide-formoterol [Symbicort] 160-4.5 mcg/actuation HFA aerosol inhaler 2 puffs INH DAILY RF: 0 Discontinued methylprednisolone 4 mg tablets,dose pack See Rx Instructions .ROUTE .COMPLEX RF: 0 Discharge Orders: Discharge Order (Routine); Ordered 03/01/20 Ordered By: Praneeth Amaral/Other Patient Handouts: Diazepam tablets, Diclofenac skin gel Admission Data Admit Date/Time: 02/28/20 12:51 Attending Provider: Praneeth Chau Admit Provider: Nomi San Primary Care Provider: Lola Olivares Other Providers: Doug Faulkner ; Nomi San ; Bruce Ovalle ; Lobo Padron Other Interventions: Discharge Summary Assessment (RN) Last Done: 03/01/20 14:12 DC Date/Time DO NOT enter until pt leaves facility: 03/01/20 15:56 Coding Level of Care Code D/C Day Management >30 mins Diagnoses Intractable low back pain M54.5 Somatic dysfunction M99.09 CPT Codes Musculoskeletal - Musculoskeletal: 46548 [address] Tr 1-2 Body regions ([id number])
== END 2020-03-01 15:56 | disposition home or self-care (01) ==
LOC: ED 19:30 → 3W 19:30 → SUATTDRO 23:55 → 3W 02-27 00:14 → SUATTDRO 02-28 12:51